=== PATIENT | female | born 1985 | race Caucasian/White ===

== ENCOUNTER 2016-12-05 06:38 | Emergency (ER) | payer OTHER ==
[~2016-12-05] VITALS: Ht 154.9 cm; Wt 57.0 kg
[~2016-12-05 06:38] MED LIST: LEVO-240 PO
[2016-12-05 06:41] VITALS: TEMP 36.9
[2016-12-05] MEDS ORDERED: SODIUM CHLORIDE 0.9% 1000ML 1,000 ML IV STA (06:46)
--- NOTE | 2016-12-05 07:09 | DIAGNOSTIC IMAGING REPORT ---
CHEST ONE VIEW PORTABLE CLINICAL HISTORY: Weakness, palpitations. COMPARISON STUDY: No previous studies for comparison. FINDINGS: The cardiac and mediastinal contours are normal. There is no evidence of focal pulmonary consolidation. There is no evidence of failure. No pleural effusions are visualized.[ IMPRESSION: No active disease in the chest. Electronically signed by: Kendall Sanz M.D. 12/05/2016 7:08 AM Dictated Date/Time: 12/05/2016 7:07 AM
[2016-12-05 07:23] VITALS: Ht 154.9 cm; Wt 57.0 kg
[2016-12-05 07:25] VITALS: O2SAT 100
[2016-12-05 07:26] LABS: BASO % 0.7 %; BASO ABS # 0.04 K/uL (0-0.2); COMPLETE YES; EOS % 1.8 %; HEMATOCRIT 41.9 % (37-47); LYMPH % 38.5 %; LYMPH ABS # 2.12 K/uL (1.2-3.4); MEAN CELL VOLUME 87.8 fL (80-100); MEAN CORPUSCULAR HEMOGLOBIN 30.2 pg (25-34); MEAN CORPUSCULAR HGB CONC 34.4 g/dl (32-36); MEAN PLATELET VOLUME 10.1 fL (7.4-10.4); MONO % 5.6 %; NEUT % 53.4 %; PLATELET COUNT 267 K/uL (130-400); RED BLOOD COUNT 4.77 M/uL (4.2-5.4)
[2016-12-05 07:40] LABS: PROTHROMBIN TIME (PATIENT) 10.7 SECONDS (9.0-12.0)
[2016-12-05] MEDS ORDERED: PRENTAB65 PO (07:41)
[2016-12-05] MEDS ORDERED: LEVO25TA PO (07:41)
[2016-12-05 07:49] LABS: ALT/SGPT 16 U/L (12-78); BLOOD UREA NITROGEN 15 mg/dl (7-18); BUN/CREATININE RATIO 13.6 (10-20); CARBON DIOXIDE 26 mmol/L (21-32); CHLORIDE 106 mmol/L (98-107); GLUCOSE 97 mg/dl (70-99); POTASSIUM 3.5 mmol/L (3.5-5.1); SODIUM 141 mmol/L (136-145)
[2016-12-05 07:58] LABS: ALKALINE PHOSPHATASE 50 U/L (45-117); AST/SGOT 18 U/L (15-37); CKMB/CK RATIO 0.2 (0-3.0)
[2016-12-05 08:56] LABS: URINE APPEARANCE CLEAR (CLEAR); URINE BILIRUBIN NEG (NEG); URINE COLOR YELLOW; URINE NITRITE NEG (NEG); URINE PH 5.5 (4.5-7.5); URINE SPECIFIC GRAVITY 1.007 (1.000-1.030); UROBILINOGEN NEG (NEG)
[2016-12-05 09:02] LABS: MANUAL MICROSCOPIC REQUIRED? NO; REVIEW REQ? NO
[2016-12-05] MEDS ORDERED: POTASSIUM CHLORIDE 10 MEQ TABCR PO STA (09:38)
--- NOTE | 2016-12-05 12:00 | ECHOCARDIOGRAM REPORT ---
*NOTICE TO RECEIVING LIBERTARIAN AGENCY This information is strictly Confidential and protected under [place] law. [place] law prohibits you from making any further disclosure of this information unless further disclosure is expressly permitted by the written consent of the person to whom it pertains or is authorized by law. A general authorization for the release of medical or other information is not sufficient for this purpose. Hospital accepts no responsibility if the information is made available to any other person, INCLUDING THE PATIENT. Interpretation Summary * Name: J LUIS COOPER Study Date: 12/05/2016 10:06 AM BP: 139/90 mmHg * Patient Location: [facility] HR: 107 * : 1985 (M/d/yyyy) Gender: Female Height: 61 in * Age: 31 yrs Ethnicity: CA Weight: 125 lb * Ordering Physician: Tung Travis * Referring Physician: Self, Referred * Performed By: Mariluz Martinez RCS * * Reason For Study: PALPITATIONS * BSA: 1.5 m2 * The study was technically adequate. * -- Conclusions -- * Sinus tachycardia was noted during the echocardiogram examination. * There is normal left ventricular wall thickness. * The left ventricular wall motion is normal. * No regional wall motion abnormalities noted. * Left ventricular systolic function is normal. * The LV Ejection Fraction = 65-70%. * The right ventricle is normal size. * The right ventricle is hyperdynamic. * There is no significant valvular heart disease. * There is no pericardial effusion. Procedure Details * A complete two-dimensional transthoracic echocardiogram was performed (2D, M-mode, Doppler and color flow Doppler). Left Ventricle * The left ventricle is normal in size. * There is normal left ventricular wall thickness. * Left ventricular systolic function is normal. * Ejection Fraction = 65-70%. * The left ventricular wall motion is normal. * No regional wall motion abnormalities noted. Right Ventricle * The right ventricle is normal size. * The right ventricle is hyperdynamic. Atria * The left atrial size is normal. * Right atrial size is normal. * There is no evidence of atrial septal defect, but resolution does not allow assessment for a patent foramen ovale. Mitral Valve * The mitral valve is normal. * There is no mitral valve stenosis. * Significant mitral regurgitation is absent. Tricuspid Valve * The tricuspid valve is normal. * There is no tricuspid stenosis. * Significant tricuspid regurgitation is absent. Aortic Valve * The aortic valve is trileaflet. * Aortic stenosis is absent. * There is no significant aortic regurgitation. Pulmonic Valve * The pulmonary valve is not well seen, but the Doppler examination is normal without significant regurgitation or stenosis. Great Vessels * The aortic root and proximal ascending aorta are normal sized. Pericardium/Pleural * There is no pericardial effusion. Great Vessels * Normal inferior vena cava diameter and respiratory variation suggests normal central venous pressure. * Normal inferior vena cava size and collapsability with sniff indicates a normal right atrial pressure of 3 mmHg Left Ventricular Diastolic Function * The LV diastolic function is normal. MMode 2D Measurements and Calculations IVSd 1.0 cm IVSs 1.3 cm LVIDd 4.5 cm LVIDs 2.9 cm LVPWd 0.86 cm LVPWs 1.4 cm IVS/LVPW 1.2 FS 34.9 % EDV(Teich) 92.5 ml ESV(Teich) 33.1 ml EF(Teich) 64.2 % EDV(cubed) 91.2 ml ESV(cubed) 25.2 ml EF(cubed) 72.4 % % IVS thick 25.3 % % LVPW thick 60.5 % LV mass(C)d 143.3 grams LV mass(C)dI 92.6 grams/m\S\2 LV mass(C)s 127.4 grams LV mass(C)sI 82.3 grams/m\S\2 SV(Teich) 59.4 ml SI(Teich) 38.4 ml/m\S\2 SV(cubed) 66.0 ml SI(cubed) 42.7 ml/m\S\2 Ao root diam 3.3 cm Ao root area 8.6 cm\S\2 ACS 1.8 cm LA dimension 2.7 cm LA/Ao 0.82 LVOT diam 1.9 cm LVOT area 2.7 cm\S\2 LVAd ap4 27.1 cm\S\2 LVLd ap4 7.2 cm EDV(MOD-sp4) 84.3 ml EDV(sp4-el) 86.5 ml LVAs ap4 17.2 cm\S\2 LVLs ap4 6.0 cm ESV(MOD-sp4) 40.2 ml ESV(sp4-el) 41.7 ml EF(MOD-sp4) 52.2 % EF(sp4-el) 51.8 % LVAd ap2 28.4 cm\S\2 LVLd ap2 7.5 cm EDV(MOD-sp2) 86.9 ml EDV(sp2-el) 91.8 ml LVAs ap2 19.9 cm\S\2 LVLs ap2 6.7 cm ESV(MOD-sp2) 48.2 ml ESV(sp2-el) 50.2 ml EF(MOD-sp2) 44.6 % EF(sp2-el) 45.3 % LVLd %diff 3.8 % EDV(MOD-bp) 88.6 ml LVLs %diff 10.4 % ESV(MOD-bp) 46.5 ml EF(MOD-bp) 47.5 % SV(MOD-sp4) 44.0 ml SI(MOD-sp4) 28.5 ml/m\S\2 SV(MOD-sp2) 38.7 ml SI(MOD-sp2) 25.0 ml/m\S\2 SV(MOD-bp) 42.1 ml SI(MOD-bp) 27.2 ml/m\S\2 SV(sp4-el) 44.8 ml SI(sp4-el) 29.0 ml/m\S\2 SV(sp2-el) 41.6 ml SI(sp2-el) 26.9 ml/m\S\2 Doppler Measurements and Calculations MV E max melissa 76.6 cm/sec MV A max melissa 82.5 cm/sec MV E/A 0.93 MV P1/2t max melissa 118.9 cm/sec MV P1/2t 48.4 msec MVA(P1/2t) 4.5 cm\S\2 MV dec slope 719.1 cm/sec\S\2 MV dec time 0.13 sec Ao V2 max 151.8 cm/sec Ao max PG 9.2 mmHg Ao max PG (full) 5.0 mmHg JAMESON(V,A) 1.8 cm\S\2 JAMESON(V,D) 1.8 cm\S\2 LV V1 max PG 4.2 mmHg LV V1 max 102.5 cm/sec PA V2 max 117.7 cm/sec PA max PG 5.5 mmHg
[2016-12-05] MEDS ORDERED: ATEN-173 PO (15:25)
[2016-12-05 15:28] VITALS: BP 129/55
--- NOTE | 2016-12-05 15:33 | Discharge Instructions ---
Discharge Instructions Date of Service Dec 05, 2016. Admission Reason for Evaluation: Heart Palpitations, chest discomfort. Discharge Discharge Diagnosis / Problem: Increased awareness of heart beat, palpitations , abnormal EKG Discharge Goals Goal(s): Therapeutic intervention Activity Recommendations Activity Limitations: per Instructions/Follow-up section Lifting Limitations: gradually increase as tolerated Exercise/Sports Limitations: gradually increase as tolerated May Resume Sexual Activity: when tolerated Shower/Bathe: no limitations Driving or Machine Use: no limitations You should take another day off of work and can resume normal work duty as tolerated on 12/07/16. Current Hospital Diet Patient's current hospital diet: Discharge Diet Recommended Diet: Regular Diet Procedures Procedures Performed: Resting transthoracic echocardiogram Stress Echocardiogram Pending Studies Studies pending at discharge: no Medical Emergencies . Who to Call and When: Medical Emergencies: If at any time you feel your situation is an emergency, please call 911 immediately. . Non-Emergent Contact Non-Emergency issues call your: Primary Care Provider, [facility] Contact Number: Cardiology [phone] . . "Provider Documentation" section prepared by Tung Travis. VTE Core Measure Inpt VTE Proph given/why not?: Treatment not indicated [place] Drug Monitoring Program Drug Monitoring Findings: No controlled medications administered or prescribed.
[2016-12-05 15:46] VITALS: PULSE 95; O2SAT 97
--- NOTE | 2016-12-05 15:51 | Cardiology Consultation ---
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 Zheng for evaluation of palpitations and abnormal EKG. The patient states that she has been in her normal state of health until approximately 2 months ago when she started noticing intermittent episodes of palpitations as well as occasional chest discomfort and left arm discomfort she noticed that her hair was then as well. She had been seen by her primary care provider at [facility] last week and her thyroid-stimulating hormone was elevated prompting initiation of levothyroxine 25 g by mouth daily which she has taken for the last 3 days. She was also prescribed a vitamin to help with her hair thinning. She is on an oral contraceptive tablet which has not been changed in years. She also wore a 24-hour Holter monitor which she completed earlier this week. The results of the Holter monitor included predominant rhythm of sinus rhythm with no significant ectopy. The average heart rate was 80 bpm. Minimum heart rates 49 bpm. Maximum heart rate is 32 bpm. Patient triggered episodes for complaint of palpitations and chest discomfort correlated normal sinus rhythm. The patient was driving to work today and noticed a sensation of a fast and heavy heartbeat also had associated chest discomfort. 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 Her vital signs his initially assessed at 6:41 AM included heart rate of 137 and telemetry findings consistent with sinus tachycardia. EKG revealed sinus tachycardia at [address]-T wave abnormality in the inferior leads as well as subtle ST depression in the lateral leads suggestive of ischemia. The patient received IV fluids and received a 25 mg dose of atenolol. The repeat EKG performed at 1315 normal sinus rhythm with normalization of the previously noted inferior repolarization abnormalities. Persistent T-wave inversion was noted in lead III which could be a variant of normal. The lateral ST segment depression had normalized. The patient was feeling improved by the time I had seen her in the emergency department. She describes that she exercises on a regular basis 2-3 times per week. She does aerobic exercise with occasional treadmill exercise and also does resistance training. She notes no recent chest related symptoms with her exercise routine. Additional findings in the emergency room including negative urine screen. Negative d-dimer screen. History PAST MEDICAL HISTORY: 1. Recently diagnosed hypothyroidism 2. hair thinning PAST SURGICAL HISTORY: delivery 2012 due to malposition GYNECOLOGICAL HISTORY: She notes 2 past pregnancies. She had one miscarriage, one term delivered by section due to mild position FAMILY HISTORY: Mother is alive age 51 with no history of heart disease. Father is also alive in his 50s no history of heart disease SOCIAL HISTORY: Patient is a nonsmoker. 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 A total of 10 systems reviewed and were otherwise negative. Allergies Coded Allergies: Tioconazole (Verified Allergy, Mild, SWELLING, 12/05/16) Uncoded Allergies: YEAST INFECTION MED (Allergy, Mild, 04/20/07) Medications Reported Home Medications Medications Dose Route/Sig Max Daily Dose Days Date Category Tenormin (Atenolol) 25 Mg Tab 25 Mg PO DAILY 30 12/05/16 Rx ( Multivit-Min W/Fe-Fa) 1 Tab Tab 1 Tab PO DAILY 90 12/05/16 Reported Synthroid (Levothyroxine Sodium) 25 Mcg Tab 25 Mcg PO DAILY 12/05/16 Reported Enpresse-28 (Levonorgestrel-Eth Estradiol () 1 Tab Tab 1 Tab PO DAILY 06/03/14 Reported Physical Exam Vital Signs (Last 8hrs): Last 8 Hrs Date Time Temp Pulse Resp B/P Pulse Ox O2 Delivery O2 Flow Rate FiO2 12/05/16 15:28 92 16 129/55 97 Room Air 12/05/16 14:10 81 16 129/75 12/05/16 13:01 86 12/05/16 12:44 86 16 135/88 12/05/16 10:54 118 16 131/78 12/05/16 09:45 96 12/05/16 08:10 110 16 139/90 97 Room Air General Appearance: Alert and Oriented x3. NAD. Head: Normocephalic Atraumatic. Eyes: PERRLA, EOMI, conjunctiva and sclera clear Neck: Supple. No carotid bruits noted. No JVD. No HJD. Respiratory: Breath sounds clear to auscultation bilaterally. No w/r/r. Cardiovascular: Reg rate and rhythm. S1 and S2 noted. No murmurs, rubs, gallops. PMI non displace. Abdomen: Normal bowel sounds, soft nontender. no abdominal bruits. Extremities: No edema, no clubbing or cyanosis. distal pulses 2/4 bilaterally. Neuro: No focal deficits. Psychiatric: Normal affect. Data Last Resulted 12/05/16 07:12 Red Blood Count 4.77, Mean Corpuscular Volume 87.8, Mean Corpuscular Hemoglobin 30.2, Mean Corpuscular Hemoglobin Concent 34.4, Mean Platelet Volume 10.1, Neutrophils (%) (Auto) 53.4, Lymphocytes (%) (Auto) 38.5, Monocytes (%) (Auto) 5.6, Eosinophils (%) (Auto) 1.8, Basophils (%) (Auto) 0.7, Neutrophils # (Auto) 2.93, Lymphocytes # (Auto) 2.12, Monocytes # (Auto) 0.31, Eosinophils # (Auto) 0.10, Basophils # (Auto) 0.04 Last Resulted 12/05/16 07:12 Past 24 Hours Test 12/05/16 07:12 12/05/16 09:45 Range/Units Creatine Kinase MB 0.7 0.5-3.6 ng/ml Creatine Kinase MB Ratio 0.2 0-3.0 Prothromb Time International Ratio 1.0 0.9-1.1 Prothrombin Time 10.7 9.0-12.0 SECONDS Total Creatine Kinase 287 H 26-192 U/L Troponin I < 0.015 < 0.015 0-0.045 ng/ml TSH was elevated at 8.9 a nationally's per liter, T3-T4 were normal. Imaging: Chest x-ray within normal limits EKG: as per [facility] Telemetry reviewed: SR and sinus tachycardia Resting transthoracic echocardiogram revealed normal resting LV systolic function with ejection fraction of 65% and no significant valvular heart disease. No pericardial effusion Exercise stress echocardiogram performed today and reviewed independently by the undersigned, exercise personally supervised by the undersigned physician: Patient exercised to an above average workload into stage IV of standard Miguel protocol. No symptoms suggestive of angina were induced. The resting left ventricular wall motion was normal with normal echocardiographic response to exercise. Mild equivocal EKG changes were noted, but in light of lack of chest discomfort and normal echocardiographic response likely represent false positive EKG. Assessment & Plan Impression: 31-year-old female 1. Palpitations, perhaps related to sinus tachycardia increased cardiac awareness 2. No structural heart disease by resting transthoracic echocardiogram 3. Normal echocardiographic response to exercise 4. Abnormal EKG: Abnormal repolarization noted in the inferior and lateral leads the setting of sinus tachycardia on presentation, and similar changes were noted with exercise in the absence of any cardiac symptoms. 5. Hypothyroidism Discussion/recommendations: The patient has no significant risk factors for underlying coronary heart disease. Although coronary vasospasm is a possibility, her symptoms were relieved by the time we did her stress test this afternoon she felt well with exercise achieving an above average workload. Her EKG tracings with tachycardia and exercise were mildly abnormal, but I do not think this is due to underlying cardiac ischemia. Resting echocardiogram was out of the possibility of underlying cardiomyopathy or hypertrophic cardio myopathy. The present time, I recommend she continues her dose of Synthroid and that she starts low-dose atenolol 25 mg by mouth daily for symptomatically. Outpatient follow-up will be scheduled with me within 2-4 weeks. A prescription for atenolol 25 mg by mouth daily was called into her pharmacy, [facility]. She may return to work on 12/07/16 she feels well. If her palpitations persist, future considerations include backing off on her levothyroxine dose to 12.5 mcg daily and close follow up of her thyroid indices. She has follow-up with her primary care provider with plans to recheck her TSH in 6 weeks. Case is discussed with Dr. Zheng by phone.
--- NOTE | 2016-12-05 16:03 | EMERGENCY ROOM VISIT NOTE ---
History Report prepared by Meagan: Kathryn Martinez Under the Supervision of: Dr. Robinson Ricardo M.D. First contact with patient: 06:46 Chief Complaint: PALPITATIONS Stated Complaint: HEART PALPS History of Present Illness The patient is a 31 year old female who presents to the Emergency Room with complaints of intermittent palpitations that began two months ago. The patient states that she was driving to work today when she suddenly noticed a jolt of chest pain. She states that she noticed palpitations, and her heart rate increase. The patient states that she became foggy. She states that over the last two days she has intermittently felt short of breath. The patient states that over the past week she has intermittently experienced abdominal pain. She states that she has been noticing left arm numbness. The patient states that she saw her PCP on Friday and mentioned that her hair has been thinning and that she has been experiencing palpitations. She states that she has had abnormal thyroid function tests. The patient states that she was placed on Synthroid. She notes a family history of hypertension. Pt denies LOC, headache , fevers, chills, diaphoresis, visual changes, neck pain, tearing pain radiating to the back, personal history or family history of aneurysm or pulmonary embolism, leg swelling, coagulation abnormalities, prolonged travel, recent surgery or immobilization, nausea, vomiting, melena, hematochezia, urinary symptoms, weakness, lymphadenopathy, rash, or other complaints. Source of History: patient Onset: two months ago Position: other (global) Quality: other (palpitations) Timing: intermittent Associated Symptoms: + SOB, + abdominal pain, + chest pain, + numbness ( left arm) Note: Associated Symptoms: foggy, heart rate increase. Review of Systems See HPI for pertinent positives and negatives. A total of ten systems were reviewed and were otherwise negative. Past Medical & Surgical Medical Problems: (1) Migraine Unspecified W/O Intract Mgrn W/O Status Migrainosus Surgical Problems: (1) History of delivery (2) History of tympanostomy Family History Cancer Diabetes mellitus Hypertension Kidney disease Kidney stones Seizures Social History Smoking Status: Never Smoker Alcohol Use: none Marital Status: Housing Status: lives with family Occupation Status: employed Current/Historical Medications Scheduled Atenolol (Tenormin), 25 MG PO DAILY Levonorgestrel-Eth Estradiol ( (Enpresse-28), 1 TAB PO DAILY Levothyroxine Sodium (Synthroid), 25 MCG PO DAILY Multivit-Min W/Fe-Fa (), 1 TAB PO DAILY Allergies Coded Allergies: Tioconazole (Verified Allergy, Mild, SWELLING, 12/05/16) Uncoded Allergies: YEAST INFECTION MED (Allergy, Mild, 04/20/07) Physical Exam Vital Signs Date Time Temp Pulse Resp B/P Pulse Ox O2 Delivery O2 Flow Rate FiO2 12/05/16 15:46 95 16 97 12/05/16 15:28 92 16 129/55 97 Room Air 12/05/16 14:10 81 16 129/75 12/05/16 13:01 86 12/05/16 12:44 86 16 135/88 12/05/16 10:54 118 16 131/78 12/05/16 09:45 96 12/05/16 08:10 110 16 139/90 97 Room Air 12/05/16 07:25 100 Room Air 12/05/16 07:25 100 Room Air 12/05/16 06:56 111 12/05/16 06:41 36.9 137 20 142/82 100 Room Air Physical Exam GENERAL: Awake, alert, well-appearing, in no distress HENT: Normocephalic, atraumatic. Oropharynx unremarkable. EYES: Normal conjunctiva. Sclera non-icteric. NECK: Supple. No nuchal rigidity. FROM. No JVD. RESPIRATORY: Clear to auscultation. CARDIAC: Mildly tachycardic rate, normal rhythm. Extremities warm and well perfused. Pulses equal. ABDOMEN: Soft, non-distended. No tenderness to palpation. No rebound or guarding. No masses. RECTAL: Deferred. MUSCULOSKELETAL: Chest examination reveals no tenderness. The back is symmetrical on inspection without obvious abnormality. There is no CVA tenderness to palpation. No joint edema. LOWER EXTREMITIES: Calves are equal size bilaterally and non-tender. No edema. No discoloration. NEURO: Normal sensorium. No sensory or motor deficits noted. SKIN: No rash or jaundice noted. Medical Decision & Procedures ER Provider Diagnostic Interpretation: X-ray: Per my interpretation, radiologist review. CHEST ONE VIEW PORTABLE CLINICAL HISTORY: Weakness, palpitations. COMPARISON STUDY: No previous studies for comparison. FINDINGS: The cardiac and mediastinal contours are normal. There is no evidence of focal pulmonary consolidation. There is no evidence of failure. No pleural effusions are visualized.[ IMPRESSION: No active disease in the chest. Electronically signed by: Kendall Sanz M.D. 12/05/2016 7:08 AM Dictated Date/Time: 12/05/2016 7:07 AM The status of this report is Signed. Draft = Not yet reviewed or approved by Radiologist. Signed = Reviewed and approved by Radiologist. Laboratory Results 12/05/16 07:12 Red Blood Count 4.77, Mean Corpuscular Volume 87.8, Mean Corpuscular Hemoglobin 30.2, Mean Corpuscular Hemoglobin Concent 34.4, Mean Platelet Volume 10.1, Neutrophils (%) (Auto) 53.4, Lymphocytes (%) (Auto) 38.5, Monocytes (%) (Auto) 5.6, Eosinophils (%) (Auto) 1.8, Basophils (%) (Auto) 0.7, Neutrophils # (Auto) 2.93, Lymphocytes # (Auto) 2.12, Monocytes # (Auto) 0.31, Eosinophils # (Auto) 0.10, Basophils # (Auto) 0.04 12/05/16 07:12 Test 12/05/16 07:12 12/05/16 07:15 12/05/16 08:20 12/05/16 09:45 White Blood Count 5.50 K/uL (4.8-10.8) Red Blood Count 4.77 M/uL (4.2-5.4) Hemoglobin 14.4 g/dL (12.0-16.0) Hematocrit 41.9 % (37-47) Mean Corpuscular Volume 87.8 fL (80-100) Mean Corpuscular Hemoglobin 30.2 pg (25-34) Mean Corpuscular Hemoglobin Concent 34.4 g/dl (32-36) Platelet Count 267 K/uL (130-400) Mean Platelet Volume 10.1 fL (7.4-10.4) Neutrophils (%) (Auto) 53.4 % Lymphocytes (%) (Auto) 38.5 % Monocytes (%) (Auto) 5.6 % Eosinophils (%) (Auto) 1.8 % Basophils (%) (Auto) 0.7 % Neutrophils # (Auto) 2.93 K/uL (1.4-6.5) Lymphocytes # (Auto) 2.12 K/uL (1.2-3.4) Monocytes # (Auto) 0.31 K/uL (0.11-0.59) Eosinophils # (Auto) 0.10 K/uL (0-0.5) Basophils # (Auto) 0.04 K/uL (0-0.2) RDW Standard Deviation 40.4 fL (36.4-46.3) RDW Coefficient of Variation 12.5 % (11.5-14.5) Immature Granulocyte % (Auto) 0.0 % Immature Granulocyte # (Auto) 0.00 K/uL (0.00-0.02) Prothrombin Time 10.7 SECONDS (9.0-12.0) Prothromb Time International Ratio 1.0 (0.9-1.1) Activated Partial Thromboplast Time 26.0 SECONDS (21.0-31.0) Partial Thromboplastin Ratio 1.0 Anion Gap 9.0 mmol/L (3-11) Est Creatinine Clear Calc Drug Dose 55.4 ml/min Estimated GFR () 76.9 Estimated GFR (Non- 66.4 BUN/Creatinine Ratio 13.6 (10-20) Calcium Level 9.0 mg/dl (8.5-10.1) Magnesium Level 2.0 mg/dl (1.8-2.4) Total Bilirubin 0.4 mg/dl (0.2-1) Direct Bilirubin 0.1 mg/dl (0-0.2) Aspartate Amino Transf (AST/SGOT) 18 U/L (15-37) Alanine Aminotransferase (ALT/SGPT) 16 U/L (12-78) Alkaline Phosphatase 50 U/L (45-117) Total Creatine Kinase 287 U/L (26-192) Creatine Kinase MB 0.7 ng/ml (0.5-3.6) Creatine Kinase MB Ratio 0.2 (0-3.0) Total Protein 7.5 gm/dl (6.4-8.2) Albumin 3.8 gm/dl (3.4-5.0) Thyroid Stimulating Hormone (TSH) 8.930 uIu/ml (0.300-4.500) Free Thyroxine 1.02 ng/dl (0.80-1.60) Free Triiodothyronine 3.33 pg/ml (2.30-4.20) Bedside D-Dimer 233 ng/mlFEU (0-450) Urine Color YELLOW Urine Appearance CLEAR (CLEAR) Urine pH 5.5 (4.5-7.5) Urine Specific [place] 1.007 (1.000-1.030) Urine Protein NEG (NEG) Urine Glucose (UA) NEG (NEG) Urine Ketones NEG (NEG) Urine Occult Blood NEG (NEG) Urine Nitrite NEG (NEG) Urine Bilirubin NEG (NEG) Urine Urobilinogen NEG (NEG) Urine Leukocyte Esterase NEG (NEG) Urine Test NEG (NEG) Troponin I < 0.015 ng/ml (0-0.045) Laboratory results reviewed by me Medications Administered Medications (Trade) Dose Ordered Sig/Brittany Route Start Time Stop Time Status Last Admin Dose Admin Sodium Chloride (Nss 1000ml) 1,000 ml @ 125 mls/hr Q8H STAT IV 12/05/16 06:46 12/05/16 14:45 DC 12/05/16 07:01 125 MLS/HR Potassium Chloride (Klor-Con M10) 20 meq NOW STAT PO 12/05/16 09:38 12/05/16 10:07 DC 12/05/16 10:51 20 MEQ Atenolol (Tenormin Tab) 50 mg STK-MED ONCE .ROUTE 12/05/16 10:18 12/05/16 10:19 DC 12/05/16 10:50 25 MG ECG Indication: palpitations Rate (beats per minute): 114 Rhythm: sinus tachycardia Findings: T-wave inversion (Inferior), no ectopy, other (normal intervals) ED Course 0646: Ordered Sodium Chloride 1000 ml @ 125 mls/hr IV. 0652: The patient was evaluated in room A3. A complete history and physical exam was performed. 0934: I discussed the patients case with Dr. Travis, Cardiology. He asked that the troponin is repeated, he would like the patient to have a dose of atenolol and also have an echocardiogram. 0935: I reevaluated the patient and she is doing well. I updated her on the plan. 0938: Ordered Potassium Chloride 20 meq PO. 1018: Ordered Atenolol 50 mg .route. 1345: I rediscussed the patient's case with Dr. Travis, Cardiology . He states that the patient had a normal echocardiogram and is going to stress the patient. 1356: I reevaluated the patient and she is doing well. 1438: I went to reevaluate the patient and she is currently being stressed. 1545: Discussing his with Dr. Travis. Patient passed her stress test very well. He feels that this is related to a sinus tachycardia and cardiac awareness. He prescribed atenolol. Medical Decision Triage Nursing notes reviewed. The patient's presentation and history were concerning for palpitations. Etiologies such as ectopy, cardiac dysrhythmia, electrolyte abnormality, thyroid dysfunction, pulmonary embolism, infection, gastrointestinal, as well as others were entertained. The patient presented with feelings of palpitations. She noted bleeding left hand tingling and a few seconds of chest discomfort. The patient has been dealing with thyroid issues recently. On presentation her heart rate was 137. Initial ECG done revealed a sinus tachycardia, albeit slower. The patient had blood work and chest imaging performed. Blood work and imaging were unremarkable. The patient had a negative CBC, chemistry panel, d-dimer, coags, troponin 2, and free thyroid measurements. The patient underwent echo from cardiology standpoint after consultation and this was normal. The patient underwent stress testing. This was negative. He recommended atenolol. She was given atenolol in the emergency department and he did prescribe more. The patient was reassessed and was doing well. She was given a work note and will be followed up in the office. By the evaluation outlined above other emergent etiologies such as those listed in the differential, as well as others, were deemed relatively unlikely. The patient was informed about the findings as listed above. All questions were answered and she was pleased with the treatment. Return instructions were outlined and the patient was discharged in stable condition. The patient was referred to cardiology and her PCP for follow-up for a recheck of the current condition. The chart was completed utilizing [employer] voice recognition software. Grammatical errors, random word insertions, pronoun errors, and incomplete sentences are an occasional consequence of this system due to software limitations, ambient noise, and hardware issues. Any formal questions or concerns about the content, text, or information contained within the body of this dictation should be directly addressed to the physician for clarification. Consults Time Called: [phone] Consulting Physician: Dr. Travis, Cardiology Returned Call: [phone] I discussed the patients case with Dr. Travis, Cardiology. He asked that the troponin is repeated, he would like the patient to have a dose of atenolol and also have an echocardiogram. Impression Primary Impression: Heart palpitations Scribe Attestation The scribe's documentation has been prepared under my direction and personally reviewed by me in its entirety. I confirm that the note above accurately reflects all work, treatment, procedures, and medical decision making performed by me. Departure Information Dispostion Home / Self-Care Prescriptions Atenolol (Tenormin) 25 Mg Tab 25 MG PO DAILY for 30 Days, #30 TAB 5 Refills Prov: Tung Travis,Roberto Carlos.O. 12/05/16 Referrals Ed Martínez M.D.([facility]) (PCP) Patient Instructions My [facility]
--- NOTE | 2016-12-05 16:25 | EXERCISE STRESS ECHO ---
*NOTICE TO RECEIVING DEMOCRAT AGENCY This information is strictly Confidential and protected under [place] law. [place] law prohibits you from making any further disclosure of this information unless further disclosure is expressly permitted by the written consent of the person to whom it pertains or is authorized by law. A general authorization for the release of medical or other information is not sufficient for this purpose. Hospital accepts no responsibility if the information is made available to any other person, INCLUDING THE PATIENT. Interpretation Summary * Name: J LUIS COOPER Study Date: 12/05/2016 02:19 PM BP: 127/84 mmHg * Patient Location: [facility] HR: 86 * : 1985 (M/d/yyyy) Gender: Female Height: 61 in * Age: 31 yrs Ethnicity: [place] Weight: 125 lb * Ordering Physician: Tung Travis * Referring Physician: Self, Referred * Performed By: Mariluz Martinez RCS * * Reason For Study: PALPITATIONS / ABN EKG * BSA: 1.5 m2 * The study was technically adequate. * -- Conclusions -- * STRESS STUDY: * Normal exercise stress echocardiogram. * Presenting symptoms of chest discomfort and palpitations were not reprodeuced having achieved target heart rate and an above average peak workload. * No echocardiographic evidence of myocardial ischemia having achieved heart rate adequate for diagnostic purposes. * The heart rate and blood pressure responses to exercise were appropriate. * Equivocal stress EKG changes were noted as described below. * No arrhythmias were observed. * This result of this stress test represents a low probability of underlying ischemic heart disease. Procedure Details * ECHOEX, CPT #00572 Left Ventricle * The left ventricle is normal in size. There is normal left ventricular wall thickness. The restng LV Ejection Fraction = 65-70%. * Resting wall motion: Normal. Stress wall motion: Appropriate increase in Left ventricular systolic function and decrease in cavity size. No stress induced segmental wall motion abnormalities. Stress Parameters * The baseline EKG reveals sinus rhythm at [address] segments are normal at rest. * Equivocal 1 mm horizontal and slightly down sloping ST depression was noted in the inferior and lateral leads at peak stress that resolved early in the post exercise recovery interval. * The stress portion of this study was personally supervised by the undersigned interpreting physician. * Rest heart rate was '86' BPM. * Rest blood pressure was '127/84' * Maximum heart rate achieved was 160 bpm. * Maximum heart rate was 85 % of maximum age-predicted heart rate. * Maximum blood pressure was '159/76' * Total exercise time was '10:37' * Maximum exercise MET level achieved was '12.50' METS * Maximum treadmill speed was '4.10' miles per hour. * Maximum treadmill elevation was '16.00'% grade.
[2017-04-26] MEDS ORDERED: BCPILLS PO (13:20)
[2017-04-26] MEDS ORDERED: SUMA50TA15 PO (13:20)
== END 2016-12-05 15:48 | disposition home or self-care (01) ==
LOC: C.EDB 06:40 → C.EDA 15:48
DX: R00.2 Palpitations (principal); E03.9 Hypothyroidism, unspecified

== ENCOUNTER 2016-12-31 12:41 | Emergency (ER) | payer OTHER ==
[~2016-12-31 12:41] MED LIST changes: +ATEN-173 PO; +LEVO25TA PO; +PRENTAB65 PO
[2016-12-31 12:43] VITALS: TEMP 36.8
[2016-12-31] MEDS ORDERED: ATEN-173 PO (13:20)
[2016-12-31 13:27] VITALS: O2SAT 99
[2016-12-31 13:32] LABS: BASO % 1.1 %; BASO ABS # 0.07 K/uL (0-0.2); COMPLETE YES; EOS % 0.7 %; HEMATOCRIT 46.1 % (37-47); LYMPH % 36.6 %; LYMPH ABS # 2.23 K/uL (1.2-3.4); MEAN CELL VOLUME 87.6 fL (80-100); MEAN CORPUSCULAR HEMOGLOBIN 29.7 pg (25-34); MEAN CORPUSCULAR HGB CONC 33.8 g/dl (32-36); MEAN PLATELET VOLUME 9.8 fL (7.4-10.4); MONO % 4.9 %; NEUT % 56.7 %; PLATELET COUNT 306 K/uL (130-400); RED BLOOD COUNT 5.26 M/uL (4.2-5.4); WHITE BLOOD COUNT 6.09 K/uL (4.8-10.8)
[2016-12-31 13:40] LABS: PROTHROMBIN TIME (PATIENT) 10.6 SECONDS (9.0-12.0)
[2016-12-31 13:48] LABS: BLOOD UREA NITROGEN 8 mg/dl (7-18); BUN/CREATININE RATIO 7.7 (10-20); CALCIUM 9.3 mg/dl (8.5-10.1); CARBON DIOXIDE 27 mmol/L (21-32); CHLORIDE 108 mmol/L (98-107); GLUCOSE 136 mg/dl (70-99); MAGNESIUM 2.4 mg/dl (1.8-2.4); SODIUM 142 mmol/L (136-145)
--- NOTE | 2016-12-31 14:54 | DIAGNOSTIC IMAGING REPORT ---
CHEST 2 VIEWS ROUTINE CLINICAL HISTORY: Palpitations. Atypical chest pain. COMPARISON STUDY: 12/05/2016 FINDINGS: The cardiac and mediastinal contours are normal. There is no evidence of focal pulmonary consolidation. There is no evidence of failure. No pleural effusions are visualized.[ IMPRESSION: No active disease in the chest. Electronically signed by: Kendall Sanz M.D. 12/31/2016 2:52 PM Dictated Date/Time: 12/31/2016 2:52 PM
[2016-12-31 15:32] VITALS: BP 117/70; PULSE 92; O2SAT 98
[2016-12-31 15:52] LABS: LYME DISEASE AB IGG NEG (NEG); LYME DISEASE AB IGM NEG (NEG)
--- NOTE | 2016-12-31 16:23 | EMERGENCY ROOM VISIT NOTE ---
History Report prepared by Meagan: Lawrence Mccarthy Under the Supervision of: Dr. Ramirez Guillen M.D. First contact with patient: 12:52 Chief Complaint: CHEST PAIN Stated Complaint: CHEST PAIN, HEART FEELS LIKE FLUTTERING History of Present Illness The patient is a 31 year old female who presents to the Emergency Room with complaints of episodes of worsening chest pain that started a week ago. The patient has had chest discomfort for a while, and had a stress test on December 05. The patient notes that 2 or 3 months, she started having heart palpitations and her hair started to thin, so she went to see her primary care doctor's office, and had lab work done. Her thyroid was checked, which came back low, so she was put on 25 mcg Levothyroxine. The patient, around a month ago, started getting short of breath, and her heart started racing more. At that time, the patient had the abnormal EKG as well as abnormal labs. Her CK was elevated but her troponin was okay. The patient was put on Atenolol by Dr. Travis of cardiology, and told the patient that she had "cardiac awareness". A week later, she was followed up by her primary care doctor, who thought that all the patient's problems were anxiety related. She was prescribed Zoloft, and was told to stop taking Atenolol, but she did not feel she was stressed or anxious, so she decided to not take the Zoloft. Last week, the patient says that her palpitations have worsened and she started getting episodes of chest pain that she describes as sharp. The patient says that she has episodes around 3 times per day that are mostly very brief, but occasionally last up to a half hour. She says that the pain is not changed by exertion, but her chest pain is worsened when bending over. She states she exercises at the gym and lifts weights and does not have chest pain then. She called Dr. Travis's office yesterday to see if she could be seen, but the patient was told that her pain was not cardiac related, and she was told to increase her Atenolol to twice per day. The increase in dosage has not helped her so far. Today, she notes that she had palpitations and pain at the same time. She called her primary care physician's office, who told the patient to be seen by cardiology. In addition to the worsening chest pain, she also notes feeling hot intermittently. Her heart has also been fluttering. She had a bit of diarrhea yesterday, and had a migraine last night with nausea. She has a history of migraines, however. The patient denies any current shortness of breath, fevers, cold symptoms, abdominal pain, or leg swelling. She has not been on any recent long trips. Her grandfather of heart disease at the age of 70, but she has no heart history in her immediate family. She is a non-smoker. Her last menstrual period was light compared to normal, and ended last week. The patient is on control. Source of History: patient Onset: A week ago Position: chest (pain) Symptom Intensity: can last up to 30 minutes Quality: sharp Timing: worsening, other (episodes) Modifying Factors (Worsening): other (bending downward) Associated Symptoms: No SOB, No abdominal pain, No fevers Note: Associated symptoms: Worsening heart palpitations. Feeling hot intermittently. Denies stress/anxiety, recent cold symptoms, leg swelling. The patient notes that she had a bit of diarrhea yesterday as well as a migraine with nausea. Review of Systems See HPI for pertinent positives & negatives. A total of 10 systems reviewed and were otherwise negative. Past Medical & Surgical Medical Problems: (1) Migraine Unspecified W/O Intract Mgrn W/O Status Migrainosus Surgical Problems: (1) History of delivery (2) History of tympanostomy Family History Cancer Diabetes mellitus Hypertension Kidney disease Kidney stones Seizures Social History Smoking Status: Never Smoker Alcohol Use: none Marital Status: Housing Status: lives with family Occupation Status: employed Current/Historical Medications Scheduled Atenolol (Tenormin), 12.5 MG PO BID Control Pills ( Control Pills), 1 TAB PO DAILY Levothyroxine Sodium (Synthroid), 25 MCG PO DAILY Scheduled PRN Sumatriptan Succinate (Imitrex), 50 MG PO PRN PRN for Migraine Allergies Coded Allergies: Tioconazole (Verified Allergy, Mild, SWELLING, 12/05/16) Uncoded Allergies: YEAST INFECTION MED (Allergy, Mild, 04/20/07) Physical Exam Vital Signs Date Time Temp Pulse Resp B/P Pulse Ox O2 Delivery O2 Flow Rate FiO2 12/31/16 15:32 92 12 117/70 98 Room Air 12/31/16 14:09 79 18 142/72 100 12/31/16 13:27 99 Room Air 12/31/16 13:23 89 12/31/16 12:43 36.8 86 20 138/93 100 Room Air Physical Exam Constitutional: Vital signs reviewed. Eyes: Pupils are equal round reactive to light. Conjunctiva are noninjected. ENT: Pharynx is clear without erythema or exudate. Mucous membranes are moist. Neck supple without meningeal signs. Respiratory: Clear to auscultation bilaterally. Breath sounds are equal bilaterally. Cardiovascular: Regular rate and rhythm. No rubs or gallops. GI: Soft, nondistended and nontender. Bowel sounds are present. Musculoskeletal: No peripheral edema. No lower extremity tenderness. Tender along left sternal border with reproduction of pain when she bends forward. Integumentary: No cyanosis. Neurological: The patient is awake and alert. No focal deficits. Psychiatric: Normal affect. Medical Decision & Procedures ER Provider Diagnostic Interpretation: X-ray results as stated below per interpretation by me and the radiologist[facility] CLINICAL HISTORY: Palpitations. Atypical chest pain. COMPARISON STUDY: 12/05/2016 FINDINGS: The cardiac and mediastinal contours are normal. There is no evidence of focal pulmonary consolidation. There is no evidence of failure. No pleural effusions are visualized.[ IMPRESSION: No active disease in the chest. Electronically signed by: Kendall Sanz M.D. 12/31/2016 2:52 PM Dictated Date/Time: 12/31/2016 2:52 PM Laboratory Results 12/31/16 13:20 Red Blood Count 5.26, Mean Corpuscular Volume 87.6, Mean Corpuscular Hemoglobin 29.7, Mean Corpuscular Hemoglobin Concent 33.8, Mean Platelet Volume 9.8, Neutrophils (%) (Auto) 56.7, Lymphocytes (%) (Auto) 36.6, Monocytes (%) (Auto) 4.9, Eosinophils (%) (Auto) 0.7, Basophils (%) (Auto) 1.1, Neutrophils # (Auto) 3.45, Lymphocytes # (Auto) 2.23, Monocytes # (Auto) 0.30, Eosinophils # (Auto) 0.04, Basophils # (Auto) 0.07 12/31/16 13:20 Test 12/31/16 13:08 12/31/16 13:20 12/31/16 13:23 Bedside Urine Test NEG (NEG) White Blood Count 6.09 K/uL (4.8-10.8) Red Blood Count 5.26 M/uL (4.2-5.4) Hemoglobin 15.6 g/dL (12.0-16.0) Hematocrit 46.1 % (37-47) Mean Corpuscular Volume 87.6 fL (80-100) Mean Corpuscular Hemoglobin 29.7 pg (25-34) Mean Corpuscular Hemoglobin Concent 33.8 g/dl (32-36) Platelet Count 306 K/uL (130-400) Mean Platelet Volume 9.8 fL (7.4-10.4) Neutrophils (%) (Auto) 56.7 % Lymphocytes (%) (Auto) 36.6 % Monocytes (%) (Auto) 4.9 % Eosinophils (%) (Auto) 0.7 % Basophils (%) (Auto) 1.1 % Neutrophils # (Auto) 3.45 K/uL (1.4-6.5) Lymphocytes # (Auto) 2.23 K/uL (1.2-3.4) Monocytes # (Auto) 0.30 K/uL (0.11-0.59) Eosinophils # (Auto) 0.04 K/uL (0-0.5) Basophils # (Auto) 0.07 K/uL (0-0.2) RDW Standard Deviation 39.3 fL (36.4-46.3) RDW Coefficient of Variation 12.2 % (11.5-14.5) Immature Granulocyte % (Auto) 0.0 % Immature Granulocyte # (Auto) 0.00 K/uL (0.00-0.02) Prothrombin Time 10.6 SECONDS (9.0-12.0) Prothromb Time International Ratio 1.0 (0.9-1.1) Activated Partial Thromboplast Time 25.8 SECONDS (21.0-31.0) Partial Thromboplastin Ratio 1.0 Anion Gap 7.0 mmol/L (3-11) Estimated GFR () 76.9 Estimated GFR (Non- 66.4 BUN/Creatinine Ratio 7.7 (10-20) Calcium Level 9.3 mg/dl (8.5-10.1) Magnesium Level 2.4 mg/dl (1.8-2.4) Thyroid Stimulating Hormone (TSH) 3.440 uIu/ml (0.300-4.500) Free Thyroxine 1.02 ng/dl (0.80-1.60) Lyme Disease IgG Antibody NEG (NEG) Lyme Disease IgM Antibody NEG (NEG) Bedside D-Dimer 190 ng/mlFEU (0-450) Bedside Troponin I 0.000 ng/ml (0-0.045) Laboratory results as reviewed by me. ECG Indication: chest pain Rate (beats per minute): 79 Rhythm: normal sinus Findings: T-wave inversion (lead 3), no acute ischemic change, other (motion artifact) ED Course 1254: The patient was evaluated in room C2B. A complete history and physical exam was performed. 1420: I reevaluated the patient and discussed the test results with her. She mentioned that she has been pretty fatigued recently but denies any headache, fevers, or tick bits. She does note that she has several dogs that get ticks on them often, so we will do a Lyme titer. 1500: I reevaluated the patient and recommended follow up with her sandwich machine operator and primary care physician. I told her that we will call her with the Lyme results. The patient verbally expressed understanding and agreement of the treatment plan. The patient will be discharged. Medical Decision This is a 31-year-old female presents with chest pain and palpitations. Differential diagnosis includes musculoskeletal pain, costochondritis, pleurisy , pneumothorax, pulmonary embolism, metabolic derangement. I did perform a limited focused review of portions of the patient's old chart on the electronic medical record. The patient had a stress echocardiogram on December 05 which was normal. She had no chest discomfort or palpitations during the stress test, but there were equivocal stress EKG changes. Results show low probability of underlying ischemic heart disease. She had equivocal 1 mm horizontal and downsloping ST depression in inferior and lateral leads at peak stress that resolved. I did evaluate the patient as noted above. The patient is presenting with sharp and brief intermittent chest pain. She states it's worse when she bends over which I was able to reproduce here in the emergency department. She also has pain with palpation of the left sternal border suggesting a musculoskeletal cause of her symptoms. She does not have any known cardiac risk factors. She did recently have a stress test and her sandwich machine operator felt that her chest pain and palpitations are not ischemic in nature. She was diagnosed with hypothyroidism and placed on levothyroxine. IV access was established. The patient was placed on a continuous supervising editor trailer. Urine test is negative. I did order and personally review the patient's 12-lead EKG and chest x-ray as described above. Her EKG is unremarkable. Her chest x-ray does not show any pneumothorax. I did order and review the patient's blood work as noted in the electronic medical record. D-dimer and troponin are both negative. TFTs are unremarkable. I did discuss the test results with the patient. I did recommend she follow up with her doctor. She does state that she has been feeling fatigued which may be secondary to the atenolol she is taking but she does state that her thoughts get many ticks and so I did add a Lyme titer which is currently pending. She was discharged in good condition and we will call her should the Lyme test be positive. Test was negative. The charge nurse was asked to inform the patient. Impression Primary Impression: Left sided chest pain Additional Impression: Palpitations Scribe Attestation The scribe's documentation has been prepared under my direct and personally reviewed by me in its entirety. I confirm that the note above accurately reflects all work, treatment, procedures, and medical decision making performed by me. Departure Information Dispostion Home / Self-Care Referrals Ed Martínez M.D.([facility]) (PCP) Forms HOME CARE DOCUMENTATION FORM, IMPORTANT VISIT INFORMATION Patient Instructions ED Chest Pain Atypical Unkn Cause, ED Palpitations, My [facility] Additional Instructions You have been examined and treated today on an emergency basis only. This is not a substitute for, or an effort to provide, complete comprehensive medical care. It is impossible to recognize and treat all injuries or illnesses in a single emergency department visit. It is therefore important that you follow up closely with your physician and sandwich machine operator. Call as soon as possible for an appointment. Return for worsening symptoms or if you develop fever, vomiting, difficulty breathing or any other concerning symptoms. Problem Qualifiers
[2017-04-26] MEDS ORDERED: BCPILLS PO (13:20)
[2017-04-26] MEDS ORDERED: SUMA50TA15 PO (13:20)
== END 2016-12-31 15:39 | disposition home or self-care (01) ==
LOC: C.EDB 12:42 → C.EDC 15:39
DX: R07.89 Other chest pain (principal); R00.2 Palpitations

== ENCOUNTER → 2017-01-13 | Outpatient (CLI) | payer OTHER ==
[~2017-01-13] MED LIST changes: +ATV/1 PO; +BCPILLS PO; +BIOT1TAB2 PO; +CYAN10005 PO; +ESCI10TA17 PO; -LEVO-240 PO; +LORA-741 PO; +METO25TA3 PO; +MULT-506 PO; -PRENTAB65 PO; +SUMA50TA15 PO
== END | disposition home or self-care (01) ==
LOC: C.LAB 06:27
PROVIDERS: ATTEND Physician Assistant
DX: R00.2 Palpitations (principal)

== ENCOUNTER → 2017-01-22 | Outpatient (CLI) | payer OTHER ==
[2017-01-22 16:34] LABS: THYROID STIMULATING HORMONE 1.78 uIu/ml (0.300-4.500)
== END | disposition home or self-care (01) ==
LOC: C.LAB 14:44
PROVIDERS: ATTEND Physician Assistant
DX: E03.9 Hypothyroidism, unspecified (principal); R00.2 Palpitations

== ENCOUNTER 2017-01-31 21:21 | Emergency (ER) | payer OTHER ==
[~2017-01-31] VITALS: Ht 156.2 cm; Wt 55.2 kg
[~2017-01-31 21:21] MED LIST changes: -ATV/1 PO; -BCPILLS PO; -BIOT1TAB2 PO; -CYAN10005 PO; -ESCI10TA17 PO; -LORA-741 PO; -METO25TA3 PO; -MULT-506 PO; -SUMA50TA15 PO
[2017-01-31 21:25] VITALS: TEMP 36.9; Ht 156.2 cm; Wt 55.2 kg
[2017-01-31] MEDS ORDERED: ONDANSETRON INJ 2 MG/ML 2 ML VIAL IV STA (22:02)
[2017-01-31] MEDS ORDERED: MoRPHine SULFATE 2 MG/ML CARP IV STA (22:02)
[2017-01-31] MEDS ORDERED: LORAZEPAM 2 MG/ML 1 ML VIAL IV STA (22:02)
[2017-01-31 23:20] LABS: BASO % 0.4 %; BASO ABS # 0.04 K/uL (0-0.2); COMPLETE YES; EOS % 0.3 %; HEMATOCRIT 39.8 % (37-47); IG% 0.2 %; LYMPH % 23.6 %; LYMPH ABS # 2.15 K/uL (1.2-3.4); MEAN CELL VOLUME 87.3 fL (80-100); MEAN CORPUSCULAR HEMOGLOBIN 30.3 pg (25-34); MEAN CORPUSCULAR HGB CONC 34.7 g/dl (32-36); MEAN PLATELET VOLUME 9.8 fL (7.4-10.4); MONO % 8.2 %; NEUT % 67.3 %; PLATELET COUNT 274 K/uL (130-400); RED BLOOD COUNT 4.56 M/uL (4.2-5.4); WHITE BLOOD COUNT 9.12 K/uL (4.8-10.8)
[2017-01-31 23:38] LABS: ALT/SGPT 18 U/L (12-78); AST/SGOT 7 U/L (15-37); BLOOD UREA NITROGEN 15 mg/dl (7-18); BUN/CREATININE RATIO 16.7 (10-20); CALCIUM 9.1 mg/dl (8.5-10.1); CARBON DIOXIDE 26 mmol/L (21-32); CHLORIDE 110 mmol/L (98-107); GLUCOSE 98 mg/dl (70-99); SODIUM 144 mmol/L (136-145)
[2017-01-31 23:41] LABS: ALKALINE PHOSPHATASE 56 U/L (45-117)
--- NOTE | 2017-02-01 00:06 | EMERGENCY ROOM VISIT NOTE ---
History Report prepared by Sylviaibtamara: Tez Matthew Under the Supervision of: Dr. Jayce Ruvalcaba M.D. First contact with patient: 21:36 Chief Complaint: CHEST PAIN Stated Complaint: CHEST PAIN,POUNDING/FAST HEART,BACK PAIN,HEADACHE, Nursing Triage Summary: Patient states "I was diagnosed with hypothyroidism at the end of November. I was started on medications for it. A few days into the meds, I started having pains in my chest. I have been checked out here multiple times for the chest pains. I have seen two different cardiologists. Everyone tells me it is not my heart but then why do I have this pain? I have a sharp pain in the left side of my chest that goes into the left side of the back of my neck. My left arm feels really weak and heavy. I have floaters in my eyes as well. I have had a migraine every day for the last three days. I have a knot of nausea in the center of my chest. " History of Present Illness The patient is a 31 year old female who presents to the Emergency Room with complaints of constant left sided chest pain beginning shortly prior to arrival. She states that she has had four months of chest pain, but states that her current chest pain feels different. She has followed up with her PCP and cardiology for her chest pain, but the cause has been uncertain. The patient also complains of a headache. She is currently being tested for thyroid problems as an outpatient. She denies nausea, or vomiting. Source of History: patient Onset: Shortly prior to arrival Position: chest (left) Timing: constant Associated Symptoms: + headache, No nausea, No vomiting Review of Systems See HPI for pertinent positives & negatives. A total of 10 systems reviewed and were otherwise negative. Past Medical & Surgical Medical Problems: (1) Migraine Unspecified W/O Intract Mgrn W/O Status Migrainosus Surgical Problems: (1) History of delivery (2) History of tympanostomy Family History Cancer Diabetes mellitus Hypertension Kidney disease Kidney stones Seizures Social History Smoking Status: Never Smoker Alcohol Use: none Marital Status: Housing Status: lives with family Occupation Status: employed Current/Historical Medications Scheduled Atenolol (Tenormin), 12.5 MG PO BID Control Pills ( Control Pills), 1 TAB PO DAILY Levothyroxine Sodium (Synthroid), 50 MCG PO DAILY Scheduled PRN Sumatriptan Succinate (Imitrex), 50 MG PO PRN PRN for Migraine Allergies Coded Allergies: Tioconazole (Verified Allergy, Mild, SWELLING, 01/31/17) Uncoded Allergies: YEAST INFECTION MED (Allergy, Mild, 04/20/07) Physical Exam Vital Signs Date Time Temp Pulse Resp B/P Pulse Ox O2 Delivery O2 Flow Rate FiO2 01/31/17 21:25 100 Room Air 01/31/17 21:25 36.9 103 18 152/88 100 Room Air Physical Exam GENERAL: Patient is a healthy-appearing well-nourished female HEAD: Normocephalic atraumatic EYES: Ocular movements intact pupils equal and react to light OROPHARYNX mucous membranes are moist no exudates present no erythema or edema present NECK: Supple no nuchal rigidity CHEST: Good equal expansion, Pain is reproducible @ sternum and left breast area LUNGS: Clear and equal to auscultation CARDIAC: Normal S1 and S2 ABDOMEN: Soft nontender no guarding BACK: No CVA tenderness EXTREMITIES: No pain upon palpation normal muscle strength in all groups no clubbing cyanosis or edema NEURO: Patient is following commands is answering questions appropriately. Alert and oriented x3 Cranial Nerves 2-12 grossly intact Medical Decision & Procedures Laboratory Results 01/31/17 23:00 Red Blood Count 4.56, Mean Corpuscular Volume 87.3, Mean Corpuscular Hemoglobin 30.3, Mean Corpuscular Hemoglobin Concent 34.7, Mean Platelet Volume 9.8, Neutrophils (%) (Auto) 67.3, Lymphocytes (%) (Auto) 23.6, Monocytes (%) (Auto) 8.2, Eosinophils (%) (Auto) 0.3, Basophils (%) (Auto) 0.4, Neutrophils # (Auto) 6.13, Lymphocytes # (Auto) 2.15, Monocytes # (Auto) 0.75, Eosinophils # (Auto) 0.03, Basophils # (Auto) 0.04 01/31/17 23:00 Test 01/31/17 23:00 01/31/17 23:13 White Blood Count 9.12 K/uL (4.8-10.8) Red Blood Count 4.56 M/uL (4.2-5.4) Hemoglobin 13.8 g/dL (12.0-16.0) Hematocrit 39.8 % (37-47) Mean Corpuscular Volume 87.3 fL (80-100) Mean Corpuscular Hemoglobin 30.3 pg (25-34) Mean Corpuscular Hemoglobin Concent 34.7 g/dl (32-36) Platelet Count 274 K/uL (130-400) Mean Platelet Volume 9.8 fL (7.4-10.4) Neutrophils (%) (Auto) 67.3 % Lymphocytes (%) (Auto) 23.6 % Monocytes (%) (Auto) 8.2 % Eosinophils (%) (Auto) 0.3 % Basophils (%) (Auto) 0.4 % Neutrophils # (Auto) 6.13 K/uL (1.4-6.5) Lymphocytes # (Auto) 2.15 K/uL (1.2-3.4) Monocytes # (Auto) 0.75 K/uL (0.11-0.59) Eosinophils # (Auto) 0.03 K/uL (0-0.5) Basophils # (Auto) 0.04 K/uL (0-0.2) RDW Standard Deviation 39.5 fL (36.4-46.3) RDW Coefficient of Variation 12.3 % (11.5-14.5) Immature Granulocyte % (Auto) 0.2 % Immature Granulocyte # (Auto) 0.02 K/uL (0.00-0.02) Anion Gap 8.0 mmol/L (3-11) Est Creatinine Clear Calc Drug Dose 69.3 ml/min Estimated GFR () 98.1 Estimated GFR (Non- 84.6 BUN/Creatinine Ratio 16.7 (10-20) Calcium Level 9.1 mg/dl (8.5-10.1) Total Bilirubin 0.2 mg/dl (0.2-1) Direct Bilirubin < 0.1 mg/dl (0-0.2) Aspartate Amino Transf (AST/SGOT) 7 U/L (15-37) Alanine Aminotransferase (ALT/SGPT) 18 U/L (12-78) Alkaline Phosphatase 56 U/L (45-117) Total Protein 7.4 gm/dl (6.4-8.2) Albumin 3.7 gm/dl (3.4-5.0) Lipase 142 U/L (73-393) Bedside D-Dimer 410 ng/mlFEU (0-450) Bedside Troponin I 0.000 ng/ml (0-0.045) Medications Administered Medications (Trade) Dose Ordered Sig/Brittany Route Start Time Stop Time Status Last Admin Dose Admin Lorazepam (Ativan Inj) 1 mg NOW STAT IV 01/31/17 22:02 01/31/17 22:07 DC 01/31/17 23:55 1 MG Morphine Sulfate (MoRPHine SULFATE INJ) 2 mg NOW STAT IV 01/31/17 22:02 01/31/17 22:07 DC 01/31/17 23:55 2 MG Ondansetron HCl (Zofran Inj) 4 mg NOW STAT IV 01/31/17 22:02 01/31/17 22:07 DC 01/31/17 23:54 4 MG ED Course 2134: Past medical records reviewed. The patient was evaluated in room C7. A complete history and physical examination was performed. Medical Decision Resident Physician Supervision Note: I interviewed and examined the patient. Discussed with Dr. Reed and agree with findings and plan as documented in the note. Documented By: Jayce Ruvalcaba Pt has follow up on for mammography, suspect some of this chest pain is actually breast related. Impression Primary Impression: Chest wall pain Scribe Attestation The scribe's documentation has been prepared under my direction and personally reviewed by me in its entirety. I confirm that the note above accurately reflects all work, treatment, procedures, and medical decision making performed by me. Departure Information Dispostion Home / Self-Care Referrals Victorino Cason M.D. (PCP) Patient Instructions My [facility]
[2017-02-01 00:07] LABS: PREG INTERNAL NEGATIVE QC NEG CLEAR BACKGROUND; PREG INTERNAL POSITIVE QC POS CONTROL LINE
--- NOTE | 2017-02-01 01:03 | EMERGENCY ROOM VISIT NOTE ---
History First contact with patient: 21:36 Chief Complaint: CHEST PAIN Stated Complaint: CHEST PAIN,POUNDING/FAST HEART,BACK PAIN,HEADACHE, Nursing Triage Summary: Patient states "I was diagnosed with hypothyroidism at the end of November. I was started on medications for it. A few days into the meds, I started having pains in my chest. I have been checked out here multiple times for the chest pains. I have seen two different cardiologists. Everyone tells me it is not my heart but then why do I have this pain? I have a sharp pain in the left side of my chest that goes into the left side of the back of my neck. My left arm feels really weak and heavy. I have floaters in my eyes as well. I have had a migraine every day for the last three days. I have a knot of nausea in the center of my chest. " History of Present Illness The patient is a 31 year old female who presents to the Emergency Room with complaints of chest pain. The pain is sharp, 7/10, over the left side of the chest and radiating to the left axilla was well as scapula. The pain started at 9pm this evening, came on suddenly, and has been consistent since. She did try to take Ibuprofen and Atenolol at home to help with the palpitations that have been coinciding with the pain. The pain is different from the chest pain she has been experiencing from the last few months for which she has been worked up as an outpatient for. She has been followed for palpitations since September that were attributed to her abnormal TSH for which she is currently being treated with Levothyroxine. She has followed with Dr. Travis initially and was started on Atenolol. She recently had a follow up with Dr. Cason for a second opinion and he recommended weaning off of the Atenolol because he believed her condition is not cardiac in nature. She has had multiple EKGs, troponin, and and ECHO stress test that have all been found to be within normal limits. The patient was prescribed Zoloft by her PCP because she believed the symptoms were related to anxiety, but Dr. Travis recommended not using the Zoloft because it would exacerbate her palpitations. She says that she just does not feel right and feels very fatigued all the time, with multiple palpitations daily along with chest pain. She denies any headaches, nausea, vomiting, abdominal pain, shortness of breath, cough, fever, chills, diarrhea, constipation. Review of Systems See HPI for pertinent positives and negatives. A total of ten systems were reviewed and were otherwise negative. Past Medical/Surgical History Medical Problems: (1) Migraine Unspecified W/O Intract Mgrn W/O Status Migrainosus Surgical Problems: (1) History of delivery (2) History of tympanostomy Family History Cancer Diabetes mellitus Hypertension Kidney disease Kidney stones Seizures Social History Smoking Status: Never Smoker Alcohol Use: none Marital Status: Housing Status: lives with family Occupation Status: employed Current/Historical Medications Scheduled Atenolol (Tenormin), 12.5 MG PO BID Control Pills ( Control Pills), 1 TAB PO DAILY Levothyroxine Sodium (Synthroid), 50 MCG PO DAILY Scheduled PRN Sumatriptan Succinate (Imitrex), 50 MG PO PRN PRN for Migraine Allergies Coded Allergies: Tioconazole (Verified Allergy, Mild, SWELLING, 01/31/17) Uncoded Allergies: YEAST INFECTION MED (Allergy, Mild, 04/20/07) Physical Exam Vital Signs Date Time Temp Pulse Resp B/P Pulse Ox O2 Delivery O2 Flow Rate FiO2 01/31/17 23:50 98 13 131/80 100 Room Air 01/31/17 21:25 100 Room Air 01/31/17 21:25 36.9 103 18 152/88 100 Room Air Physical Exam GENERAL: Awake, alert, well-appearing, in mild distress HENT: Normocephalic, atraumatic. Oropharynx unremarkable. EYES: Normal conjunctiva. Sclera non-icteric. NECK: Supple. No nuchal rigidity. RESPIRATORY: Clear to auscultation. CARDIAC: Regular rate, normal rhythm. Extremities warm and well perfused. Pulses equal. ABDOMEN: Soft, non-distended. No tenderness to palpation. No rebound or guarding. No masses. RECTAL: Deferred. MUSCULOSKELETAL: Chest examination reveals point tenderness to palpation over the left side of the chest along the 5th rib. The back is symmetrical on inspection without obvious abnormality. There is no CVA tenderness to palpation. Tenderness over the left scapula where the patient states that the pain is radiating. LOWER EXTREMITIES: Calves are equal size bilaterally and non-tender. No edema. No discoloration. NEURO: Normal sensorium. No sensory or motor deficits noted. SKIN: No rash or jaundice noted. Medical Decision & Procedures Laboratory Results 01/31/17 23:00 Red Blood Count 4.56, Mean Corpuscular Volume 87.3, Mean Corpuscular Hemoglobin 30.3, Mean Corpuscular Hemoglobin Concent 34.7, Mean Platelet Volume 9.8, Neutrophils (%) (Auto) 67.3, Lymphocytes (%) (Auto) 23.6, Monocytes (%) (Auto) 8.2, Eosinophils (%) (Auto) 0.3, Basophils (%) (Auto) 0.4, Neutrophils # (Auto) 6.13, Lymphocytes # (Auto) 2.15, Monocytes # (Auto) 0.75, Eosinophils # (Auto) 0.03, Basophils # (Auto) 0.04 01/31/17 23:00 Test 01/31/17 23:00 01/31/17 23:13 White Blood Count 9.12 K/uL (4.8-10.8) Red Blood Count 4.56 M/uL (4.2-5.4) Hemoglobin 13.8 g/dL (12.0-16.0) Hematocrit 39.8 % (37-47) Mean Corpuscular Volume 87.3 fL (80-100) Mean Corpuscular Hemoglobin 30.3 pg (25-34) Mean Corpuscular Hemoglobin Concent 34.7 g/dl (32-36) Platelet Count 274 K/uL (130-400) Mean Platelet Volume 9.8 fL (7.4-10.4) Neutrophils (%) (Auto) 67.3 % Lymphocytes (%) (Auto) 23.6 % Monocytes (%) (Auto) 8.2 % Eosinophils (%) (Auto) 0.3 % Basophils (%) (Auto) 0.4 % Neutrophils # (Auto) 6.13 K/uL (1.4-6.5) Lymphocytes # (Auto) 2.15 K/uL (1.2-3.4) Monocytes # (Auto) 0.75 K/uL (0.11-0.59) Eosinophils # (Auto) 0.03 K/uL (0-0.5) Basophils # (Auto) 0.04 K/uL (0-0.2) RDW Standard Deviation 39.5 fL (36.4-46.3) RDW Coefficient of Variation 12.3 % (11.5-14.5) Immature Granulocyte % (Auto) 0.2 % Immature Granulocyte # (Auto) 0.02 K/uL (0.00-0.02) Urine Test NEG (NEG) Anion Gap 8.0 mmol/L (3-11) Est Creatinine Clear Calc Drug Dose 69.3 ml/min Estimated GFR () 98.1 Estimated GFR (Non- 84.6 BUN/Creatinine Ratio 16.7 (10-20) Calcium Level 9.1 mg/dl (8.5-10.1) Total Bilirubin 0.2 mg/dl (0.2-1) Direct Bilirubin < 0.1 mg/dl (0-0.2) Aspartate Amino Transf (AST/SGOT) 7 U/L (15-37) Alanine Aminotransferase (ALT/SGPT) 18 U/L (12-78) Alkaline Phosphatase 56 U/L (45-117) Total Protein 7.4 gm/dl (6.4-8.2) Albumin 3.7 gm/dl (3.4-5.0) Lipase 142 U/L (73-393) Thyroid Stimulating Hormone (TSH) 3.300 uIu/ml (0.300-4.500) Thyroxine (T4) 11.6 mcg/dl (4.5-10.9) Bedside D-Dimer 410 ng/mlFEU (0-450) Bedside Troponin I 0.000 ng/ml (0-0.045) Medications Administered Medications (Trade) Dose Ordered Sig/Brittany Route Start Time Stop Time Status Last Admin Dose Admin Lorazepam (Ativan Inj) 1 mg NOW STAT IV 01/31/17 22:02 01/31/17 22:07 DC 01/31/17 23:55 1 MG Morphine Sulfate (MoRPHine SULFATE INJ) 2 mg NOW STAT IV 01/31/17 22:02 01/31/17 22:07 DC 01/31/17 23:55 2 MG Ondansetron HCl (Zofran Inj) 4 mg NOW STAT IV 01/31/17 22:02 01/31/17 22:07 DC 01/31/17 23:54 4 MG Medical Decision Patient is a 31 year old female that presents with a 1 hour history of chest pain - Tests Ordered: CBC, BMP, Lipase, LFTs, Troponin, Urine , D-Dimer - Medications Ordered: Ativan, Morphine, Zofran - Imaging: Chest X-Ray - Lab work and Imaging was all within normal limits - Pain most likely 2/2 MSK origin based on exam and reproducibility Impression Primary Impression: Chest wall pain Departure Information Dispostion Home / Self-Care Condition GOOD Referrals Victorino Cason M.D. (PCP) Patient Instructions [facility]
[2017-02-01 01:30] VITALS: BP 115/74; PULSE 96; O2SAT 100
[2017-02-01] MEDS ORDERED: ATV/1 PO ×2 (01:34→01:35)
--- NOTE | 2017-02-01 08:15 | DIAGNOSTIC IMAGING REPORT ---
TWO VIEW CHEST CLINICAL HISTORY: Atypical chest pain. FINDINGS: PA and lateral chest radiographs are compared to study dated 12/31/2016. The cardiomediastinal silhouette is unremarkable. The lungs and pleural spaces are clear. There is no pneumothorax. The bony thorax appears intact. IMPRESSION: No active disease in the chest. Electronically signed by: Catracho Warren M.D. 02/01/2017 8:13 AM Dictated Date/Time: 02/01/2017 8:13 AM
[2017-04-26] MEDS ORDERED: BCPILLS PO (13:20)
[2017-04-26] MEDS ORDERED: SUMA50TA15 PO (13:20)
== END 2017-02-01 01:30 | disposition home or self-care (01) ==
LOC: C.EDB 21:22 → C.EDC 02-01 01:30
DX: R07.89 Other chest pain (principal); Z80.9 Family history of malignant neoplasm, unspecified; Z83.3 Family history of diabetes mellitus; Z82.49 Family history of ischemic heart disease and other diseases of the circulatory system; Z84.1 Family history of disorders of kidney and ureter; Z82.0 Family history of epilepsy and other diseases of the nervous system; Z79.899 Other long term (current) drug therapy; Z79.3 Long term (current) use of hormonal contraceptives

== ENCOUNTER → 2017-02-06 | Outpatient (CLI) | payer OTHER ==
[~2017-02-06] MED LIST changes: +ATV/1 PO; +BCPILLS PO; +BIOT1TAB2 PO; +CYAN10005 PO; +ESCI10TA17 PO; +LORA-741 PO; +METO25TA3 PO; +MULT-506 PO; +SUMA50TA15 PO
--- NOTE | 2017-02-06 12:54 | MAMMOGRAPHY REPORT ---
UNILATERAL LEFT DIGITAL DIAGNOSTIC MAMMOGRAM TOMOSYNTHESIS WITH CAD AND TARGETED LEFT ULTRASOUND: 02/06 CLINICAL HISTORY: 31-year-old woman with 2 palpable lumps in the upper outer quadrant of the left galileo ast that she noticed a few months ago. They typically fluctuate based on her cycle but this one rece ntly enlarged and never shrunk again. No family history of breast cancer. No skin changes or nipple discharge. Patient has a history of previous fine-needle aspiration based on palpation of a palpabl e mass that was located in the 2:00 left breast, 8 cm from the nipple while the patient was in normal anatomic position. A previous left breast ultrasound performed 06/17/2013 demonstrated a circumscri bed oval parallel mass in the 1:00 axis that measured 2.1 x 2.0 x 0.8 mm. The final pathology diagno sis was that of a lactating adenoma or normal breast tissue. TECHNIQUE: Left breast tomosynthesis in addition to standard 2D mammography was performed. Current st udy was also evaluated with a Computer Aided Detection (CAD) system. COMPARISON: Comparison is made to exam dated: 06/17/2013 ultrasound - [facility]. BREAST COMPOSITION: The tissue of the left breast is heterogeneously dense, which may obscure small masses. FINDINGS: A triangular skin palpable marker overlies the upper outer middle one third of the left br east, denoting the lump pointed out by the patient. There is no obvious mass, focal area of architec tural distortion or suspicious cluster of microcalcifications. Targeted ultrasound was performed in the area of palpable lump pointed out by the patient. The patie nt noted 2 lumps. The first was located in the 1:00 axis, 6 cm from the nipple, and the second was l arger in the 1:00 axis approximately 2-5 cm from the nipple. On palpation there is a discrete soft m obile mass in the 1:00 axis, 6 cm from the nipple in the area of first lumbar pointed out by the contreras ent. In this location, there is an isoechoic circumscribed parallel solid appearing mass that measur es 14.0 x 4.2 x 11.3 mm. When comparing to the prior ultrasound performed on 06/17/2013, the [facility] appears similar but the mass identified at that time was larger based on measurements and visually more plump. The prior measurements were 20.1 x 7.7 x 21.0 mm. This was also the palpab le mass that was previously aspirated and the diagnosis described as either a lactating adenoma or be nign breast tissue. Nevertheless, given the interval decrease in size sonographically this is consid ered benign and currently has benign sonographic features. In the second area of concern in the 1:00 axis approximately 3-5 cm from the nipple, sonographically normal dense glandular tissue is identified without a suspicious solid or cystic mass. IMPRESSION: ACR BI-RADS CATEGORY 2: BENIGN, TARGETED ULTRASOUND ACR BI-RADS CATEGORY 2: BENIGN 1. The palpable lump in the 1:00 left breast, 6 cm from the nipple has decreased in size comparing t o the 2013 ultrasound, confirming benignity. Pathology results from a prior fine-needle aspiration w ere also benign. Recommend continued clinical monitoring. 2. The larger area of palpable concern in the 1:00 axis, 3-5 cm from the nipple has no suspicious ma mmographic or sonographic correlate. This could simply represent dense glandular tissue. Clinical f ollow-up is also recommended. 3. Overall, there is no mammographic or targeted sonographic evidence of malignancy in the left [address]. These results and recommendations were discussed with the patient at the time of the exam. Approximately 10% of breast cancers are not detected with mammography. A negative mammographic report should not delay biopsy if a clinically suggestive mass is present. Lidia Richmond M.D. ay/:02/06/2017 12:15:38 Manager Community Development: Margie BELL(Dov)(M), [facility] letter sent: Normal 1/2 BI-RADS Code: ACR BI-RADS Category 2: Benign Ultrasound BI-RADS: ACR BI-RADS Category 2: Benign
== END | disposition home or self-care (01) ==
LOC: C.MAMM 09:19
PROVIDERS: ATTEND Obstetrics & Gynecology
DX: N63 Unspecified lump in breast (principal)

== ENCOUNTER → 2017-02-07 | Outpatient (CLI) | payer OTHER ==
[2017-02-07 16:07] LABS: CHOLESTEROL/HDL RATIO 3.4
[2017-02-07 17:09] LABS: LYME DISEASE AB IGG NEG (NEG); LYME DISEASE AB IGM NEG (NEG)
== END | disposition home or self-care (01) ==
LOC: C.LAB 14:19
PROVIDERS: ATTEND Physician Assistant
DX: Z00.00 Encounter for general adult medical examination without abnormal findings (principal); Z13.21 Encounter for screening for nutritional disorder; R53.83 Other fatigue; M62.81 Muscle weakness (generalized)

== ENCOUNTER → 2017-02-13 | Outpatient (CLI) | payer OTHER ==
[~2017-02-13] MED LIST changes: -ATV/1 PO; +GADAVIST IV PRN
--- NOTE | 2017-02-13 20:24 | DIAGNOSTIC IMAGING REPORT ---
MRI soft tissue neck SOFT TISSUE NECK COMBO CLINICAL HISTORY: R20.2 Arm paresthesia, [id number] nodule TECHNIQUE: MRI multi axial acquisition COMPARISON STUDY: None FINDINGS: Signal characteristics of the salivary glands are unremarkable. There is no significant cervical adenopathy. The soft tissue neck musculature is symmetric. There is no evidence for abnormal postcontrast enhancement. There is no evidence for mass collection or abscess. IMPRESSION: Normal study Electronically signed by: Jersey Luciano M.D. 02/13/2017 8:23 PM Dictated Date/Time: 02/13/2017 8:21 PM
--- NOTE | 2017-02-13 20:28 | DIAGNOSTIC IMAGING REPORT ---
MRI OF THE BRAIN WITHOUT AND WITH IV CONTRAST CLINICAL HISTORY: R41.82 Altered mental [id number] Floaters in visual [id number] COMPARISON STUDY: No previous studies for comparison. TECHNIQUE: Utilizing a 1.5 Lillie magnet and dedicated coil, multiplanar, multiecho imaging of the brain was performed pre and postcontrast administration. IV administration of 8.5 mL of Gadavist contrast was uneventful. FINDINGS: Diffusion-weighted images are normal. Ventricular system is midline. Sella and parasellar regions are within normal limits. Internal auditory canals are symmetric. Postcontrast images are negative for an enhancing lesion. IMPRESSION: Normal study. Electronically signed by: Jersey Luciano M.D. 02/13/2017 8:26 PM Dictated Date/Time: 02/13/2017 8:26 PM
== END | disposition home or self-care (01) ==
LOC: C.MRI 18:56
PROVIDERS: ATTEND Physician Assistant
DX: R20.2 Paresthesia of skin (principal); H43.399 Other vitreous opacities, unspecified eye; R53.83 Other fatigue; R41.82 Altered mental status, unspecified

== ENCOUNTER → 2017-02-28 | Outpatient (CLI) | payer OTHER ==
[~2017-02-28] MED LIST changes: -GADAVIST IV PRN
[2017-02-28 15:32] LABS: THYROID STIMULATING HORMONE 1.13 uIu/ml (0.300-4.500)
[2017-03-05 08:00] LABS: GLIADIN DEAMIDATED IgA AB 5 UNITS (<20); GLIADIN DEAMIDATED IgG AB 6 UNITS (<20); RETICULIN IgA AB Negative (Negative)
== END | disposition home or self-care (01) ==
LOC: C.LAB 13:09
PROVIDERS: ATTEND Internal Medicine
DX: E03.9 Hypothyroidism, unspecified (principal); R53.83 Other fatigue; M62.81 Muscle weakness (generalized); R20.2 Paresthesia of skin; R41.82 Altered mental status, unspecified; E53.8 Deficiency of other specified B group vitamins

== ENCOUNTER → 2017-03-03 | Outpatient (CLI) | payer OTHER | END | disposition home or self-care (01) | LOC: C.LAB 07:29 | PROVIDERS: ATTEND Internal Medicine | DX: R41.82 Altered mental status, unspecified (principal) ==

== ENCOUNTER → 2017-03-27 | Outpatient (CLI) | payer OTHER ==
[~2017-03-27] MED LIST changes: -ESCI10TA17 PO; -MULT-506 PO
== END | disposition home or self-care (01) ==
LOC: C.LAB 14:00
PROVIDERS: ATTEND Physician Assistant
DX: E03.9 Hypothyroidism, unspecified (principal)

== ENCOUNTER → 2017-04-15 | Outpatient (CLI) | payer OTHER | END | disposition home or self-care (01) | LOC: C.LAB 09:57 | PROVIDERS: ATTEND Physician Assistant | DX: E53.8 Deficiency of other specified B group vitamins (principal) ==

== ENCOUNTER 2017-04-26 21:29 | Emergency (ER) | payer OTHER ==
[~2017-04-26] VITALS: Ht 154.9 cm; Wt 54.7 kg
[~2017-04-26 21:29] MED LIST changes: -BIOT1TAB2 PO; -CYAN10005 PO; -LORA-741 PO; -METO25TA3 PO
[2017-04-26 21:37] VITALS: TEMP 36.8; Ht 154.9 cm; Wt 54.7 kg
[2017-04-26] MEDS ORDERED: BIOT1TAB2 PO (22:08)
[2017-04-26] MEDS ORDERED: CYAN10005 PO (22:08)
[2017-04-26 23:28] LABS: BASO % 0.6 %; BASO ABS # 0.05 K/uL (0-0.2); COMPLETE YES; EOS % 0.7 %; HEMATOCRIT 44.3 % (37-47); IG% 0.1 %; LYMPH % 39.3 %; LYMPH ABS # 3.23 K/uL (1.2-3.4); MEAN CORPUSCULAR HEMOGLOBIN 30.8 pg (25-34); MEAN CORPUSCULAR HGB CONC 35.4 g/dl (32-36); MEAN PLATELET VOLUME 9.7 fL (7.4-10.4); MONO % 6.7 %; NEUT % 52.6 %; PLATELET COUNT 318 K/uL (130-400); RED BLOOD COUNT 5.09 M/uL (4.2-5.4); WHITE BLOOD COUNT 8.21 K/uL (4.8-10.8)
[2017-04-26 23:31] LABS: URINE APPEARANCE CLEAR (CLEAR); URINE BILIRUBIN NEG (NEG); URINE COLOR YELLOW; URINE NITRITE NEG (NEG); URINE PH 6.5 (4.5-7.5); URINE SPECIFIC GRAVITY 1.018 (1.000-1.030); UROBILINOGEN NEG (NEG); ZZUR CULT IF INDIC CLEAN CATCH NO
[2017-04-26 23:37] LABS: POINT OF CARE TROPONIN I < 0.030 ng/ml (0-0.045)
[2017-04-26 23:39] LABS: INR 0.9 (0.9-1.1)
--- NOTE | 2017-04-26 23:42 | DIAGNOSTIC IMAGING REPORT ---
TWO VIEW CHEST CLINICAL HISTORY: Palpitations. FINDINGS: PA and lateral chest radiographs are compared to study dated 02/01/2017. The cardiomediastinal silhouette is unremarkable. The lungs and pleural spaces are clear. There is no pneumothorax. The bony thorax appears intact. IMPRESSION: No active disease in the chest. Electronically signed by: Catracho Warren M.D. 04/26/2017 11:41 PM Dictated Date/Time: 04/26/2017 11:41 PM
[2017-04-26 23:47] LABS: BUN/CREATININE RATIO 13.5 (10-20); CALCIUM 9.8 mg/dl (8.5-10.1); CREATININE 0.93 mg/dl (0.60-1.20); MAGNESIUM 2.3 mg/dl (1.8-2.4); POTASSIUM 3.3 mmol/L (3.5-5.1)
[2017-04-26 23:55] LABS: ALB/GLOB RATIO 0.8 (0.9-2); THYROID STIMULATING HORMONE 6.37 uIu/ml (0.300-4.500)
[2017-04-26 23:55] LABS: BENZODIAZEPINE, URINE NEG (NEG); COCAINE,URINE NEG (NEG); MANUAL MICROSCOPIC REQUIRED? NO; PHENCYCLIDINE, URINE NEG (NEG); REVIEW REQ? NO
[2017-04-27] MEDS ORDERED: OPTIRAY 320 IV PRN
[2017-04-27 00:27] LABS: LYME DISEASE AB IGG NEG (NEG); LYME DISEASE AB IGM NEG (NEG)
--- NOTE | 2017-04-27 00:31 | DIAGNOSTIC IMAGING REPORT ---
CT ANGIOGRAM OF THE CHEST CLINICAL HISTORY: Dyspnea. Palpitations. COMPARISON STUDY: Chest x-ray dated 04/26/2017. TECHNIQUE: Following the IV administration of 75 cc of Optiray 320, CT angiogram of the chest was performed from the upper abdomen to the thoracic inlet utilizing the pulmonary embolus protocol. Images are reviewed in the axial, sagittal, and coronal planes. 3-D MIPS images are created and assessed. IV contrast was administered without complication. A dose lowering technique was utilized adhering to the principles of ALARA. CT DOSE: 187.92 mGy.cm FINDINGS: Thyroid: Imaged portions of the thyroid gland are normal in size and attenuation. Thoracic aorta: The thoracic aorta is normal in caliber and demonstrates standard 3-vessel arch anatomy. No dissection is seen. Pulmonary vasculature: The pulmonary trunk is normal in caliber. There are no filling defects identified in main, lobar, or proximal segmental pulmonary branches to suggest pulmonary embolus. Evaluation of the peripheral branches is degraded by motion artifact. Heart: The heart is normal in size and configuration, and without pericardial effusion. Lungs and pleural spaces: A calcified granuloma is noted in the right upper lobe. The lungs and pleural spaces are otherwise clear. The trachea and central airways are patent. Mediastinum: There is no mediastinal lymphadenopathy. Ale: Clear. Axillae: There is no axillary lymphadenopathy. Upper abdomen: Partially visualized upper abdominal viscera is within normal limits. Skeletal structures: No lytic or blastic bony lesions are seen. IMPRESSION: 1. There is no evidence of pulmonary embolus in the main, lobar, or proximal segmental pulmonary arteries. 2. The lungs are clear. Electronically signed by: Catracho Warren M.D. 04/27/2017 12:30 AM Dictated Date/Time: 04/27/2017 12:25 AM
[2017-04-27 01:01] VITALS: BP 125/80
[2017-04-27 01:04] VITALS: PULSE 105; O2SAT 98
--- NOTE | 2017-04-27 02:25 | EMERGENCY ROOM VISIT NOTE ---
History First contact with patient: 22:24 Chief Complaint: CARDIAC ASSESSMENT Stated Complaint: HEART SKIPPING BEATS Nursing Triage Summary: pt reports feeling of "missed beats." it hasnt done it for "10 minutes now." History of Present Illness The patient is a 31 year old female who presents to the Emergency Room with complaints of palpitations and vague chest pain over the past one day. The patient has had intermittent chest discomfort symptoms for the past few months. She has been seen in the emergency department previously with this complaint, which ultimately led to her having normal echocardiogram and stress echo by cardiology 5 months ago. The patient was found to have hypothyroidism and was on a low dose of Synthroid for a few months. The patient stated that the Synthroid dosing made her feel worse, and at the instruction of endocrinology she discontinued the Synthroid about one month ago. She has not had recent fever or chills. No difficulty breathing. She did have travel to the [place] earlier in the summer about 4 or 5 weeks ago, but does not have a history of DVT or PE. She describes the chest discomfort as a hollow sensation in the chest. There is no radiation of the discomfort. She has been eating, drinking , and using the bathroom is normal. She denies chance of . She rates her discomfort a 4/10. Review of Systems More than 10 systems were reviewed and otherwise negative with the exception of history of present illness. Past Medical/Surgical History Medical Problems: (1) Migraine Unspecified W/O Intract Mgrn W/O Status Migrainosus Surgical Problems: (1) History of delivery (2) History of tympanostomy Family History Cancer Diabetes mellitus Hypertension Kidney disease Kidney stones Seizures Social History Smoking Status: Never Smoker Alcohol Use: none Marital Status: Housing Status: lives with family Occupation Status: employed Current/Historical Medications Scheduled Biotin (Biotin), 1 TAB PO DAILY Control Pills ( Control Pills), 1 TAB PO DAILY Cyanocobalamin (Vitamin B-12), 1,000 MCG PO DAILY Scheduled PRN Sumatriptan Succinate (Imitrex), 50 MG PO PRN PRN for Migraine Physical Exam Vital Signs Date Time Temp Pulse Resp B/P (MAP) Pulse Ox O2 Delivery O2 Flow Rate FiO2 04/27/17 01:04 105 22 98 04/27/17 01:01 125/80 04/27/17 00:49 119 20 98 8/20/17 00:34 121 19 100 04/27/17 00:31 146/91 04/27/17 00:24 138/96 04/27/17 00:04 84 17 99 04/27/17 00:01 121/74 04/26/17 23:49 83 16 98 04/26/17 23:46 90 98 04/26/17 23:44 143/76 04/26/17 23:25 87 99 Room Air 04/26/17 23:19 85 15 99 04/26/17 23:14 127/81 04/26/17 23:10 96 13 04/26/17 22:05 84 04/26/17 21:44 98 Room Air 04/26/17 21:37 36.8 103 18 148/76 100 Room Air Pain Rating (0-10): 0 Physical Exam VITALS: Vitals are noted on the nurse's note and reviewed by myself. Vital signs stable. GENERAL: Well-developed, well-nourished, white female, who is in no acute distress and resting comfortably. Patient is cooperative with the examination. HEAD: Normocephalic atraumatic. EARS: External ear normal. External auditory canals clear, tympanic membranes pearly arambula without erythema or effusion bilaterally. EYES: Pupils equal round and reactive to light and accommodation. Conjunctivae without injection, sclerae without icterus. Extraocular movements intact. NOSE: Patent, turbinates without inflammation or discharge. MOUTH: Mucous membranes moist. Tonsils are not enlarged. Pharynx without erythema, blood, or exudate. Uvula midline. Airway patent. NECK: Supple without nuchal rigidity. No lymphadenopathy. No thyromegaly. Cervical spine is nontender. HEART: Regular rate and rhythm without murmurs gallops or rubs. LUNGS: Clear to auscultation bilaterally without wheezes, rales or rhonchi. No retractions or accessory muscle use. ABDOMEN: Positive normal bowel sounds x 4. Soft, nontender, without masses or organomegaly. No guarding or rebound tenderness. MUSCULOSKELETAL: No muscle atrophy, erythema, or edema noted. Full range of motion without joint tenderness in all extremities. No tenderness to palpation. Normal gait. Strength 5/5 throughout. NEURO: Patient was alert and oriented to person place and time. CN II through XII grossly intact. Deep tendon reflexes 2+ throughout. No focal neurological deficits SKIN: The skin was without rashes, erythema, edema, or bruising. Capillary reflex less than 2 seconds. Medical Decision & Procedures ER Provider Diagnostic Interpretation: TWO VIEW CHEST CLINICAL HISTORY: Palpitations. FINDINGS: PA and lateral chest radiographs are compared to study dated 02/01/2017. The cardiomediastinal silhouette is unremarkable. The lungs and pleural spaces are clear. There is no pneumothorax. The bony thorax appears intact. IMPRESSION: No active disease in the chest. CT ANGIOGRAM OF THE CHEST CLINICAL HISTORY: Dyspnea. Palpitations. COMPARISON STUDY: Chest x-ray dated 04/26/2017. TECHNIQUE: Following the IV administration of 75 cc of Optiray 320, CT angiogram of the chest was performed from the upper abdomen to the thoracic inlet utilizing the pulmonary embolus protocol. Images are reviewed in the axial, sagittal, and coronal planes. 3-D MIPS images are created and assessed. IV contrast was administered without complication. A dose lowering technique was utilized adhering to the principles of ALARA. CT DOSE: 187.92 mGy.cm FINDINGS: Thyroid: Imaged portions of the thyroid gland are normal in size and attenuation. Thoracic aorta: The thoracic aorta is normal in caliber and demonstrates standard 3-vessel arch anatomy. No dissection is seen. Pulmonary vasculature: The pulmonary trunk is normal in caliber. There are no filling defects identified in main, lobar, or proximal segmental pulmonary branches to suggest pulmonary embolus. Evaluation of the peripheral branches is degraded by motion artifact. Heart: The heart is normal in size and configuration, and without pericardial effusion. Lungs and pleural spaces: A calcified granuloma is noted in the right upper lobe. The lungs and pleural spaces are otherwise clear. The trachea and central airways are patent. Mediastinum: There is no mediastinal lymphadenopathy. Ale: Clear. Axillae: There is no axillary lymphadenopathy. Upper abdomen: Partially visualized upper abdominal viscera is within normal limits. Skeletal structures: No lytic or blastic bony lesions are seen. IMPRESSION: 1. There is no evidence of pulmonary embolus in the main, lobar, or proximal segmental pulmonary arteries. 2. The lungs are clear. Laboratory Results 04/26/17 23:15 Red Blood Count 5.09, Mean Corpuscular Volume 87.0, Mean Corpuscular Hemoglobin 30.8, Mean Corpuscular Hemoglobin Concent 35.4, Mean Platelet Volume 9.7, Neutrophils (%) (Auto) 52.6, Lymphocytes (%) (Auto) 39.3, Monocytes (%) (Auto) 6.7, Eosinophils (%) (Auto) 0.7, Basophils (%) (Auto) 0.6, Neutrophils # (Auto) 4.31, Lymphocytes # (Auto) 3.23, Monocytes # (Auto) 0.55, Eosinophils # (Auto) 0.06, Basophils # (Auto) 0.05 04/26/17 23:15 Test 04/26/17 22:50 04/26/17 23:15 04/26/17 23:18 Urine Color YELLOW Urine Appearance CLEAR (CLEAR) Urine pH 6.5 (4.5-7.5) Urine Specific [place] 1.018 (1.000-1.030) Urine Protein NEG (NEG) Urine Glucose (UA) NEG (NEG) Urine Ketones NEG (NEG) Urine Occult Blood NEG (NEG) Urine Nitrite NEG (NEG) Urine Bilirubin NEG (NEG) Urine Urobilinogen NEG (NEG) Urine Leukocyte Esterase NEG (NEG) Urine Test NEG (NEG) Urine Opiates Screen NEG (NEG) Urine Methadone, Qualitative NEG (NEG) Urine Barbiturates NEG (NEG) Urine Phencyclidine (PCP) Level NEG (NEG) Ur Amphetamine/Methamphetamine NEG (NEG) MDMA (Ecstasy) Screen NEG (NEG) Urine Benzodiazepines Screen NEG (NEG) Urine Cocaine Metabolite NEG (NEG) Urine Marijuana (THC) NEG (NEG) White Blood Count 8.21 K/uL (4.8-10.8) Red Blood Count 5.09 M/uL (4.2-5.4) Hemoglobin 15.7 g/dL (12.0-16.0) Hematocrit 44.3 % (37-47) Mean Corpuscular Volume 87.0 fL (80-100) Mean Corpuscular Hemoglobin 30.8 pg (25-34) Mean Corpuscular Hemoglobin Concent 35.4 g/dl (32-36) Platelet Count 318 K/uL (130-400) Mean Platelet Volume 9.7 fL (7.4-10.4) Neutrophils (%) (Auto) 52.6 % Lymphocytes (%) (Auto) 39.3 % Monocytes (%) (Auto) 6.7 % Eosinophils (%) (Auto) 0.7 % Basophils (%) (Auto) 0.6 % Neutrophils # (Auto) 4.31 K/uL (1.4-6.5) Lymphocytes # (Auto) 3.23 K/uL (1.2-3.4) Monocytes # (Auto) 0.55 K/uL (0.11-0.59) Eosinophils # (Auto) 0.06 K/uL (0-0.5) Basophils # (Auto) 0.05 K/uL (0-0.2) RDW Standard Deviation 38.9 fL (36.4-46.3) RDW Coefficient of Variation 12.2 % (11.5-14.5) Immature Granulocyte % (Auto) 0.1 % Immature Granulocyte # (Auto) 0.01 K/uL (0.00-0.02) Prothrombin Time 10.0 SECONDS (9.0-12.0) Prothromb Time International Ratio 0.9 (0.9-1.1) Activated Partial Thromboplast Time 27.1 SECONDS (21.0-31.0) Partial Thromboplastin Ratio 1.0 Anion Gap 8.0 mmol/L (3-11) Est Creatinine Clear Calc Drug Dose 65.5 ml/min Estimated GFR () 94.3 Estimated GFR (Non- 81.3 BUN/Creatinine Ratio 13.5 (10-20) Calcium Level 9.8 mg/dl (8.5-10.1) Magnesium Level 2.3 mg/dl (1.8-2.4) Total Bilirubin 0.3 mg/dl (0.2-1) Aspartate Amino Transf (AST/SGOT) 14 U/L (15-37) Alanine Aminotransferase (ALT/SGPT) 20 U/L (12-78) Alkaline Phosphatase 68 U/L (45-117) Total Protein 9.0 gm/dl (6.4-8.2) Albumin 4.1 gm/dl (3.4-5.0) Globulin 4.9 gm/dl (2.5-4.0) Albumin/Globulin Ratio 0.8 (0.9-2) Lipase 199 U/L (73-393) Thyroid Stimulating Hormone (TSH) 6.370 uIu/ml (0.300-4.500) Free Thyroxine 1.05 ng/dl (0.80-1.60) Lyme Disease IgG Antibody NEG (NEG) Lyme Disease IgM Antibody NEG (NEG) Bedside D-Dimer > 450 ng/mlFEU (0-450) Bedside Troponin I < 0.030 ng/ml (0-0.045) ECG Change: Normal sinus rhythm @[address] and T wave abnormality Abnormal ECG When compared with ECG of 31-JAN-2017 21:25, No significant change was found ED Course Physical exam and history were performed. Nursing notes, EMR, and Medication List were personally reviewed. Patient appears to have palpitations and a strange hollow sensation in her chest. The patient has a family history of cardiac disease and has had a normal stress test herself for the past 6 months. She does follow with cardiology. Additionally there is a history of thyroid disorder. IV access was established and labs were obtained. EKG is as above and is without acute ST elevation. Chest x-ray was performed. The patient was placed on cardiac rehab nurse. The patient's blood work is as above and was reviewed. She does not have a significant elevated white blood cell count, gross anemia, bandemia, or significant electrolyte imbalance. Transaminases are nondiagnostic. Troponin 1 is negative. D-dimer was elevated and a CT scan was performed and without acute findings. Chest x-ray was also without acute findings. TSH is elevated at greater than 6, however I am unsure if this is distinctly the cause of her symptoms. She did remain in normal sinus rhythm with intermittent episodes of sinus tachycardia while on the cardiac rehab nurse. There is no ectopy or significant dysrhythmic episodes. Urine was without evidence of infection. Drug of abuse was negative. Lyme was negative. Overall the patient remained in stable condition throughout her emergency department stay. I discussed options of care with the patient who feels comfortable with discharge home. She does not appear to be experiencing an acutely life-threatening event or process. I suspect this is an exacerbation of palpitation symptoms that she has had over the past several months. The patient is to follow with her primary care physician and compliance program manager this week for further care and management. She was certainly invited back to ER with any new, worsening, or concerning symptoms. The chart was completed utilizing [employer] Voice Recognition Software. Grammatical errors, random word insertions, pronoun errors, and incomplete sentences are an occasional consequence of this system due to software limitations, ambient noise, and hardware issues. Any formal questions or concerns about the content, text, or information contained within the body of this dictation should be directly addressed to the provider for clarification. . Medical Decision Differential diagnosis includes, but is not limited to: Myocardial infarction, dysrhythmia, pericarditis, pneumothorax, aortic aneurysm/dissection, DVT/PE, anxiety, GERD, PUD, electrolyte imbalance, thyroid disorder, pneumonia, bronchitis, pancreatitis, and others Medication Reconcilliation Current Medication List: was personally reviewed by me Blood Pressure Screening Blood pressure disposition: Elevated BP felt to be situational Impression Primary Impression: Intermittent palpitations Departure Information Dispostion Home / Self-Care Condition GOOD Forms IMPORTANT VISIT INFORMATION Patient Instructions [facility] Additional Instructions You were seen and evaluated today on an emergency basis only. This is not a substitute for, or an effort to provide, complete comprehensive medical care. It is not possible to recognize and treat all injuries or illnesses in a single emergency department visit. For this reason it is recommended that you followup with your compliance program manager by telephone on Friday to arrange appropriate follow-up visit. Drink plenty of fluids and remain well hydrated. You are welcome to return to the emergency department anytime with new, worsening, or concerning symptoms.
== END 2017-04-27 01:08 | disposition home or self-care (01) ==
LOC: C.EDB 21:30 → C.EDA 04-27 01:08
DX: R00.2 Palpitations (principal); Z80.9 Family history of malignant neoplasm, unspecified; Z83.3 Family history of diabetes mellitus; Z82.49 Family history of ischemic heart disease and other diseases of the circulatory system; Z84.1 Family history of disorders of kidney and ureter; Z82.0 Family history of epilepsy and other diseases of the nervous system

== ENCOUNTER 2017-05-04 18:47 | Emergency (ER) | payer OTHER ==
[~2017-05-04] VITALS: Ht 154.9 cm; Wt 53.9 kg
[~2017-05-04 18:47] MED LIST changes: -ATEN-173 PO; +BIOT1TAB2 PO; +CYAN10005 PO; -LEVO25TA PO
[2017-05-04 18:53] VITALS: TEMP 36.4; Ht 154.9 cm; Wt 53.9 kg
[2017-05-04] MEDS ORDERED: ATIVAN 1MG HOMEPACK PO ONE (19:30)
--- NOTE | 2017-05-04 19:31 | EMERGENCY ROOM VISIT NOTE ---
History First contact with patient: 18:55 Chief Complaint: CALF PAIN Stated Complaint: R CALF PAIN History of Present Illness The patient is a 31 year old female who presents to the Emergency Room with complaints of right calf pain that started 2 days ago. The patient denies any known injury. She reports it as a dull ache that is constant. Intermittently she gets sharp pains up the back of her calf. She has tried Tylenol and ibuprofen with mild relief of the pain. The patient denies any chest pain or pressure. No shortness of breath. She does feel occasional heart palpitations. She has had heart palpitations for many months now. She had a full cardiac workup including a stress test and echocardiogram. She follows with Dr. Cason. Review of Systems 10 system review performed and negative unless noted in HPI or below Past Medical/Surgical History Medical Problems: (1) Migraine Unspecified W/O Intract Mgrn W/O Status Migrainosus Surgical Problems: (1) History of delivery (2) History of tympanostomy Anxiety Heart palpitations Family History Cancer Diabetes mellitus Hypertension Kidney disease Kidney stones Seizures Social History Smoking Status: Never Smoker Alcohol Use: none Marital Status: Housing Status: lives with family Occupation Status: employed Current/Historical Medications Scheduled Biotin (Biotin), 1 TAB PO DAILY Control Pills ( Control Pills), 1 TAB PO DAILY Cyanocobalamin (Vitamin B-12), 1,000 MCG PO DAILY Levothyroxine Sodium (Synthroid), 25 MCG PO DAILY Metoprolol Succ (Toprol Xl) (Toprol-Xl), 12.5 MG PO DAILY Scheduled PRN Sumatriptan Succinate (Imitrex), 50 MG PO PRN PRN for Migraine Physical Exam Vital Signs Date Time Temp Pulse Resp B/P (MAP) Pulse Ox O2 Delivery O2 Flow Rate FiO2 05/04/17 19:52 96 18 138/75 96 Room Air 05/04/17 18:53 36.4 103 18 153/90 100 Room Air Physical Exam VITALS: Vitals are noted on the nurse's note and reviewed by myself. Vital signs stable. GENERAL: 31-year-old female, mildly anxious in appearance, nondiaphoretic, well- developed well-nourished. SKIN: The skin was without rashes, erythema, edema, or bruising. HEAD: Normocephalic atraumatic. HEART: Regular rate and rhythm without murmurs gallops or rubs. LUNGS: Clear to auscultation bilaterally without wheezes, rales or rhonchi. No accessory muscle use. MUSCULOSKELETAL: No muscle atrophy, erythema, or edema noted. Full range of motion in all extremities. No tenderness to palpation. Normal gait. Strength 5/5 throughout. NEURO: Patient was alert and oriented to person place and time. Normal sensation to touch. No focal neurological deficits. Medical Decision & Procedures ER Provider Diagnostic Interpretation: BILATERAL LOWER EXTREMITY VENOUS DOPPLER HISTORY: Acute right-sided calf pain. COMPARISON STUDY: None. FINDINGS: There is normal compressibility, flow, and augmentation within the right lower extremity deep venous system. IMPRESSION: No DVT within the right lower extremity. Electronically signed by: Jose Koo M.D. 05/04/2017 8:42 PM Dictated Date/Time: 05/04/2017 8:41 PM The status of this report is Signed. Draft = Not yet reviewed or approved by Radiologist. Signed = Reviewed and approved by Radiologist ED Course The patient was seen and examined An ultrasound was performed and reviewed The findings were discussed with the patient She was given a home pack of Ativan The patient was discharged in good condition Medical Decision Differential diagnosis: Muscular strain, DVT, cellulitis, anxiety This patient is a pleasant 31-year-old female that presents emergency department with 2 days of Pain. Her exam was unremarkable. I do think that the patient's anxiety is playing a role in her symptoms. The patient had the of her aunt from a heart attack in her 50s a few months ago. Her other and also just had a heart attack in her 40s. She is concerned that there is something cardiac going on. She also recently changed jobs. The patient was given a home pack of Ativan. I urged her to follow-up with her primary care physician for further treatment of her anxiety. She was welcomed to return to the emergency department with worsening symptoms Blood Pressure Screening Patient's blood pressure: Normal blood pressure Impression Primary Impression: Right calf pain Departure Information Dispostion Home / Self-Care Condition GOOD Prescriptions Lorazepam (ATIVAN) 0.5 Mg Tab 0.5 MG PO Q8H for Anxiety, #10 TAB Prov: Marley Hsu PA-C 05/04/17 Referrals Willard Donnelly M.D. (PCP) Patient Instructions My [facility] Additional Instructions You were evaluated in the emergency department today for right calf pain. An ultrasound was negative for any blood clots. Please continue to take Tylenol and ibuprofen for pain Ibuprofen 400 mg and/or Tylenol 500 mg every 8 hours. You may also alternate these medications for more effective pain relief: Ibuprofen --4 HRS--> Tylenol --4 HRS--> ibuprofen --4 HRS--> Tylenol .... It is likely that some of your symptoms are related to anxiety. You have been given a short prescription of Ativan. You may have 1 tab every 8 hours as needed for anxiety. Please do not drink alcohol or drug take his medication. It may make you drowsy Please follow-up with your primary care physician within one week for a recheck. Please return to the emergency department with any new medical concerns or worsening symptoms
[2017-05-04] MEDS ORDERED: LEVO25TA PO (19:34)
[2017-05-04] MEDS ORDERED: METO25TA3 PO (19:35)
--- NOTE | 2017-05-04 20:44 | DIAGNOSTIC IMAGING REPORT ---
BILATERAL LOWER EXTREMITY VENOUS DOPPLER HISTORY: Acute right-sided calf pain. COMPARISON STUDY: None. FINDINGS: There is normal compressibility, flow, and augmentation within the right lower extremity deep venous system. IMPRESSION: No DVT within the right lower extremity. Electronically signed by: Jose Koo M.D. 05/04/2017 8:42 PM Dictated Date/Time: 05/04/2017 8:41 PM
[2017-05-04] MEDS ORDERED: LORA-741 PO (20:52)
[2017-05-04 21:18] VITALS: BP 142/85; PULSE 93; O2SAT 100
== END 2017-05-04 21:18 | disposition home or self-care (01) ==
LOC: C.EDB 18:47
DX: M79.661 Pain in right lower leg (principal); R00.2 Palpitations; F41.9 Anxiety disorder, unspecified; G43.909 Migraine, unspecified, not intractable, without status migrainosus; Z79.3 Long term (current) use of hormonal contraceptives; Z83.3 Family history of diabetes mellitus; Z82.49 Family history of ischemic heart disease and other diseases of the circulatory system; Z82.0 Family history of epilepsy and other diseases of the nervous system; Z84.1 Family history of disorders of kidney and ureter

== ENCOUNTER 2017-07-03 21:05 | Emergency (ER) | payer OTHER ==
[~2017-07-03] VITALS: Ht 154.9 cm; Wt 55.2 kg
[~2017-07-03 21:05] MED LIST changes: +LEVO25TA PO; +METO25TA3 PO
[2017-07-03 21:13] VITALS: TEMP 36.8; Ht 154.9 cm; Wt 55.2 kg
[2017-07-03 21:44] VITALS: O2SAT 98
[2017-07-03] MEDS ORDERED: ESCI10TA17 PO (21:49)
[2017-07-03] MEDS ORDERED: MULT-506 PO (21:49)
[2017-07-03 22:13] LABS: BASO % 0.8 %; BASO ABS # 0.07 K/uL (0-0.2); COMPLETE YES; HEMATOCRIT 39.7 % (37-47); IG% 0.1 %; LYMPH % 36.9 %; LYMPH ABS # 3.04 K/uL (1.2-3.4); MEAN CELL VOLUME 87.8 fL (80-100); MEAN CORPUSCULAR HEMOGLOBIN 29.9 pg (25-34); MEAN PLATELET VOLUME 9.4 fL (7.4-10.4); MONO % 8.9 %; NEUT % 52.3 %; PLATELET COUNT 300 K/uL (130-400); RED BLOOD COUNT 4.52 M/uL (4.2-5.4); WHITE BLOOD COUNT 8.24 K/uL (4.8-10.8)
--- NOTE | 2017-07-03 22:20 | DIAGNOSTIC IMAGING REPORT ---
CHEST ONE VIEW PORTABLE CLINICAL HISTORY: Atypical chest pain COMPARISON STUDY: 04/26/2017 FINDINGS: The cardiac and mediastinal contours are normal. There is no evidence of focal pulmonary consolidation. There is no evidence of failure. No pleural effusions are visualized.[ IMPRESSION: No active disease in the chest. Electronically signed by: Kendall Sanz M.D. 07/03/2017 10:18 PM Dictated Date/Time: 07/03/2017 10:18 PM
[2017-07-03 22:24] LABS: POINT OF CARE TROPONIN I < 0.030 ng/ml (0-0.045)
[2017-07-03 22:32] LABS: PREG INTERNAL NEGATIVE QC NEG CLEAR BACKGROUND; PREG INTERNAL POSITIVE QC POS CONTROL LINE
[2017-07-03 22:33] LABS: ALT/SGPT 16 U/L (12-78); BLOOD UREA NITROGEN 16 mg/dl (7-18); CALCIUM 8.7 mg/dl (8.5-10.1); CARBON DIOXIDE 24 mmol/L (21-32); CHLORIDE 108 mmol/L (98-107); CREATININE 0.88 mg/dl (0.60-1.20); GLUCOSE 114 mg/dl (70-99); MAGNESIUM 2.2 mg/dl (1.8-2.4); POTASSIUM 3.7 mmol/L (3.5-5.1); SODIUM 139 mmol/L (136-145)
[2017-07-03 22:44] LABS: ALKALINE PHOSPHATASE 51 U/L (45-117); AST/SGOT 11 U/L (15-37)
[2017-07-03] MEDS ORDERED: OPTIRAY 320 IV PRN (22:45)
--- NOTE | 2017-07-03 22:53 | DIAGNOSTIC IMAGING REPORT ---
CT ANGIOGRAM OF THE CHEST CLINICAL HISTORY: Atypical chest pain. Elevated d-dimer. COMPARISON STUDY: 04/27/2017, chest x-ray dated 07/03/2017 TECHNIQUE: Following the IV administration of 85 mL of Optiray-320, CT angiogram of the thorax was performed from the thoracic inlet to the lung bases utilizing the pulmonary embolus protocol. Images are reviewed in the axial, sagittal, and coronal planes. IV contrast was administered without complication. MIP imaging was performed. A dose lowering technique was utilized adhering to the principles of ALARA. CT DOSE: 191.87 mGy.cm FINDINGS: No pathologically enlarged axillary mediastinal or hilar lymph nodes were visualized. There was no evidence of thoracic aortic dilatation. There were no pulmonary artery filling defects to indicate acute pulmonary embolism. No pleural effusions are visualized. There was no evidence of focal pulmonary consolidation. IMPRESSION: 1. No evidence of acute pulmonary embolism 2. No evidence of focal pulmonary consolidation Electronically signed by: Kendall Sanz M.D. 07/03/2017 10:52 PM Dictated Date/Time: 07/03/2017 10:49 PM
[2017-07-03 23:01] LABS: LYME DISEASE AB IGG NEG (NEG); LYME DISEASE AB IGM NEG (NEG)
[2017-07-03 23:10] VITALS: BP 133/83; PULSE 90; O2SAT 97
--- NOTE | 2017-07-03 23:31 | EMERGENCY ROOM VISIT NOTE ---
History First contact with patient: 21:23 Chief Complaint: CARDIAC ASSESSMENT Stated Complaint: DIZZY,NAUSEA,CHEST PAIN,L ARM & JAW PAIN Nursing Triage Summary: See triage note. History of Present Illness The patient is a 31 year old female who presents to the Emergency Room with complaints of intermittent chest pain with jaw pain and shoulder pain for the past 6 months. Patient had a normal stress test and echo November 2016 of [address] by Dr. Travis. She has another stress echo scheduled for next month as her symptoms have been progressing. 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 Patient also has Chitra's. She does not like the way synthroid makes her feel so she stopped taking it and reviewed this with her psychologist educational. Patient occasionally gets heart palpitations and was on metoprolol but did not like the side effects and stopped this also. Patient had an extensive workup by the PCP and was recently start on Lexapro 2 months ago. Patient states some of her anxiety has lessened. She does not feel like her symptoms are from anxiety though. Patient is on control. She does not smoke. No recent travel. Patient states her maternal aunt had heart disease in her 50s. Patient states that has intermittent chest pain that lasts for about 15 minutes described as aching, ranging in severity 5 out of 10 that occurs about 5 times per day for the past 6 months. Patient states for the past 2 weeks she has now gotten jaw pain and left shoulder pain. Nothing exertional. Patient denies abdominal pain, nausea , vomiting, diarrhea, leg pain or swelling, back pain, recent illness. She is tolerating by mouth fluids and food. Patient denies high blood pressure, cluster, diabetes, tobacco use, drug use. Review of Systems See HPI for pertinent positives & negatives. A total of 10 systems reviewed and were otherwise negative. Past Medical/Surgical History Medical Problems: (1) Migraine Unspecified W/O Intract Mgrn W/O Status Migrainosus Surgical Problems: (1) History of delivery (2) History of tympanostomy Chitra's, heart palpitations Family History Cancer Diabetes mellitus Hypertension Kidney disease Kidney stones Seizures Social History Smoking Status: Never Smoker Alcohol Use: none Marital Status: Housing Status: lives with family Occupation Status: employed Current/Historical Medications Scheduled Control Pills ( Control Pills), 1 TAB PO DAILY Escitalopram (Lexapro), 10 MG PO QAM Multivitamin (Multivitamin), 1 TAB PO DAILY Scheduled PRN Sumatriptan Succinate (Imitrex), 50 MG PO PRN PRN for Migraine Physical Exam Vital Signs Date Time Temp Pulse Resp B/P (MAP) Pulse Ox O2 Delivery O2 Flow Rate FiO2 07/03/17 23:10 90 16 133/83 97 Room Air 07/03/17 21:44 98 Room Air 07/03/17 21:27 100 07/03/17 21:13 36.8 103 18 153/92 100 Room Air Physical Exam VITALS: Vitals are noted on the nurse's note and reviewed by myself. Vital signs stable. GENERAL:pleasant female, in no acute distress, nondiaphoretic, well-developed well-nourished. SKIN: The skin was without rashes, erythema, edema, or bruising. There is no tenting of the skin. Capillary reflex less than 2 seconds. HEAD: Normocephalic atraumatic. EARS: External auditory canals clear, tympanic membranes pearly arambula without erythema or effusion bilaterally. EYES: Pupils equal round and reactive to light and accommodation. Conjunctivae without injection, sclerae without icterus. Extraocular movements intact. NOSE: Patent, turbinates without inflammation or discharge. MOUTH: Mucous membranes moist. Pharynx without erythema or exudate. Uvula midline. Airway patent. Tongue does not deviate. NECK: Supple without nuchal rigidity. No lymphadenopathy. No thyromegaly. Cervical spine is nontender. No JVD. HEART: Regular rate and rhythm without murmurs gallops or rubs. Chest nontender to palpation LUNGS: Clear to auscultation bilaterally without wheezes, rales or rhonchi. No dullness to percussion. No retractions or accessory muscle use. ABDOMEN: Positive bowel sounds x 4. Normal tympanic percussion. Soft, nontender, without masses or organomegaly. Davis sign negative. No guarding or rebound tenderness. MUSCULOSKELETAL: No muscle atrophy, erythema, or edema noted. NEURO: Patient was alert and oriented to person place and time. Normal sensation to light and sharp touch. No focal neurological deficits. Medical Decision & Procedures Laboratory Results 07/03/17 21:57 Red Blood Count 4.52, Mean Corpuscular Volume 87.8, Mean Corpuscular Hemoglobin 29.9, Mean Corpuscular Hemoglobin Concent 34.0, Mean Platelet Volume 9.4, Neutrophils (%) (Auto) 52.3, Lymphocytes (%) (Auto) 36.9, Monocytes (%) (Auto) 8.9, Eosinophils (%) (Auto) 1.0, Basophils (%) (Auto) 0.8, Neutrophils # (Auto) 4.31, Lymphocytes # (Auto) 3.04, Monocytes # (Auto) 0.73, Eosinophils # (Auto) 0.08, Basophils # (Auto) 0.07 07/03/17 21:57 Test 07/03/17 21:57 07/03/17 22:08 White Blood Count 8.24 K/uL (4.8-10.8) Red Blood Count 4.52 M/uL (4.2-5.4) Hemoglobin 13.5 g/dL (12.0-16.0) Hematocrit 39.7 % (37-47) Mean Corpuscular Volume 87.8 fL (80-100) Mean Corpuscular Hemoglobin 29.9 pg (25-34) Mean Corpuscular Hemoglobin Concent 34.0 g/dl (32-36) Platelet Count 300 K/uL (130-400) Mean Platelet Volume 9.4 fL (7.4-10.4) Neutrophils (%) (Auto) 52.3 % Lymphocytes (%) (Auto) 36.9 % Monocytes (%) (Auto) 8.9 % Eosinophils (%) (Auto) 1.0 % Basophils (%) (Auto) 0.8 % Neutrophils # (Auto) 4.31 K/uL (1.4-6.5) Lymphocytes # (Auto) 3.04 K/uL (1.2-3.4) Monocytes # (Auto) 0.73 K/uL (0.11-0.59) Eosinophils # (Auto) 0.08 K/uL (0-0.5) Basophils # (Auto) 0.07 K/uL (0-0.2) RDW Standard Deviation 40.7 fL (36.4-46.3) RDW Coefficient of Variation 12.6 % (11.5-14.5) Immature Granulocyte % (Auto) 0.1 % Immature Granulocyte # (Auto) 0.01 K/uL (0.00-0.02) Anion Gap 7.0 mmol/L (3-11) Est Creatinine Clear Calc Drug Dose 69.2 ml/min Estimated GFR () 100.8 Estimated GFR (Non- 86.9 BUN/Creatinine Ratio 18.0 (10-20) Calcium Level 8.7 mg/dl (8.5-10.1) Magnesium Level 2.2 mg/dl (1.8-2.4) Total Bilirubin 0.2 mg/dl (0.2-1) Direct Bilirubin < 0.1 mg/dl (0-0.2) Aspartate Amino Transf (AST/SGOT) 11 U/L (15-37) Alanine Aminotransferase (ALT/SGPT) 16 U/L (12-78) Alkaline Phosphatase 51 U/L (45-117) Total Protein 7.1 gm/dl (6.4-8.2) Albumin 3.3 gm/dl (3.4-5.0) Lipase 142 U/L (73-393) Thyroid Stimulating Hormone (TSH) 17.100 uIu/ml (0.300-4.500) Human Chorionic Gonadotropin, Qual NEG (NEG) Lyme Disease IgG Antibody NEG (NEG) Lyme Disease IgM Antibody NEG (NEG) Bedside D-Dimer > 450 ng/mlFEU (0-450) Bedside Troponin I < 0.030 ng/ml (0-0.045) ED Course Prior records/ancillary studies reviewed. Triage Nursing notes reviewed. Additional history obtained from family The patient's history was concerning for chest pain. Differential diagnosis: Etiologies such as cardiac ischemia, aortic dissection, pulmonary embolism, pneumonia, pneumothorax, musculoskeletal, infections, pericarditis, myocarditis , esophageal rupture, gastrointestinal, as well as others were entertained. Physical examination: As above. ER treatment provided: pt was observed On reassessment the patient felt better. Diagnostic interpretation by me: The electrocardiogram was normal sinus, normal intervals, T wave inversion in lead 3, impression normal sinus rhythm interpreted by myself. Old EKG was unchanged. The labs revealed other d-dimer and patient was sent for CTA and this is negative. Negative troponin. Slightly elevated TSH. Patient was advised to see her psychologist educational. Imaging studies: Chest x-ray as above [~ rep ct add3]] CT ANGIOGRAM OF THE CHEST CLINICAL HISTORY: Atypical chest pain. Elevated d-dimer. COMPARISON STUDY: 04/27/2017, chest x-ray dated 07/03/2017 TECHNIQUE: Following the IV administration of 85 mL of [id number]-[id number], CT angiogram of the thorax was performed from the thoracic inlet to the lung bases utilizing the pulmonary embolus protocol. Images are reviewed in the axial, sagittal, and coronal planes. IV contrast was administered without complication. MIP imaging was performed. A dose lowering technique was utilized adhering to the principles of ALARA. CT DOSE: 191.87 mGy.cm FINDINGS: No pathologically enlarged axillary mediastinal or hilar lymph nodes were visualized. There was no evidence of thoracic aortic dilatation. There were no pulmonary artery filling defects to indicate acute pulmonary embolism. No pleural effusions are visualized. There was no evidence of focal pulmonary consolidation. IMPRESSION: 1. No evidence of acute pulmonary embolism 2. No evidence of focal pulmonary consolidation Electronically signed by: Kendall Sanz M.D. Exam and history seem consistent with noncardiac chest pain. Patient had unremarkable workup besides a slightly elevated TSH. She had a stress test earlier this year that was unremarkable. She has a stress test and echo scheduled within the next few weeks. Her symptoms are nonexertional. Her EKG is unchanged. Her troponin is negative. She is advised to follow-up as scheduled with her specialist or here in the ER sooner for chest pain, difficulty breathing, worsening signs or symptoms or as needed. By the evaluation outlined above emergent etiologies such as cardiac ischemia, aortic dissection, pulmonary embolism, pneumonia, pneumothorax, infections, pericarditis, myocarditis, gastrointestinal, as well as others were deemed relatively unlikely. The pt informed about the findings as listed above. All questions were answered and pleased with the treatment. Return instructions were outlined and the patient was discharged in stable condition. 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 Case reviewed with my attending Medical Decision as above Medication Reconcilliation Current Medication List: was personally reviewed by me Blood Pressure Screening Patient's blood pressure: Normal blood pressure Impression Primary Impression: Non-cardiac chest pain Additional Impression: Elevated TSH Departure Information Dispostion Home / Self-Care Condition GOOD Forms IMPORTANT VISIT INFORMATION Patient Instructions Chest Pain - [facility] Additional Instructions Follow up with your psychologist educational for your slightly elevated TSH today. Follow-up as scheduled with your railroad wheels and axles inspector for further outpatient testing for your ongoing chest pain symptoms. Ibuprofen(Motrin, Advil) may be used for fever or pain. Use 400mg every six hours as needed. Take with food. Avoid using more than 1600mg in a 24 hour period. Do not use 1600mg per day for more than three consecutive days without physician direction. Prolonged inappropriate use can lead to stomach upset or ulcers. (AND/OR) Acetaminophen(Tylenol) may be used for fever or pain. Use 500mg every six hours as needed. Avoid using more than 2000mg in a 24 hour period. Rest and drink plenty of fluids as tolerated. Continue current medications. Avoid strenuous activities and anything that worsens your pain. Resume normal activities once your symptoms resolve. Return to the ER immediately for worsening or persistent chest pain, abdominal pain, vomiting, fevers, chest pains, difficulty breathing, worsening of your condition, or as needed. Follow up with your primary physician in 2-3 days for a recheck of your current condition. If your symptoms persist, recommend follow-up with GI for further evaluation and workup for your ongoing symptoms. Problem Qualifiers
== END 2017-07-03 23:20 | disposition home or self-care (01) ==
LOC: C.EDB 21:06 → C.EDC 23:20
DX: R07.9 Chest pain, unspecified (principal); R94.6 Abnormal results of thyroid function studies; Z79.899 Other long term (current) drug therapy; Z80.9 Family history of malignant neoplasm, unspecified; Z83.3 Family history of diabetes mellitus; Z82.49 Family history of ischemic heart disease and other diseases of the circulatory system; Z84.1 Family history of disorders of kidney and ureter; Z82.0 Family history of epilepsy and other diseases of the nervous system

== ENCOUNTER → 2017-09-09 | Outpatient (CLI) | payer OTHER ==
[~2017-09-09] MED LIST changes: -BIOT1TAB2 PO; -CYAN10005 PO; +ESCI10TA17 PO; -LEVO25TA PO; -METO25TA3 PO; +MULT-506 PO
--- NOTE | 2017-09-09 13:26 | DIAGNOSTIC IMAGING REPORT ---
VENOUS DOPP LOWER EXT UNILAT CLINICAL HISTORY: 31 years-old Female presenting with M79.669 Calf painRight calf pain E X0D E [id number]. TECHNIQUE: Real-time grayscale and color and spectral Doppler ultrasound imaging of the veins of the right lower extremity was performed. Compression and augmentation were also utilized. COMPARISON: . FINDINGS: Right: Common femoral vein: Patent. Greater saphenous vein: Patent. Deep femoral vein: Patent. Femoral vein: Patent. Popliteal vein: Patent. Calf veins: Patent. Other: None. IMPRESSION: No evidence of deep venous thrombosis. Electronically signed by: Willard Garcia M.D. 09/09/2017 1:24 PM Dictated Date/Time: 09/09/2017 1:23 PM
== END | disposition home or self-care (01) ==
LOC: C.ULTR 12:34
PROVIDERS: ATTEND Nurse Practitioner Adult Health
DX: M79.661 Pain in right lower leg (principal)

== ENCOUNTER → 2017-09-25 | Outpatient (CLI) | payer OTHER | END | disposition home or self-care (01) | LOC: C.LAB 12:07 | PROVIDERS: ATTEND Internal Medicine | DX: E53.8 Deficiency of other specified B group vitamins (principal); E06.3 Autoimmune thyroiditis ==

== ENCOUNTER → 2017-11-28 | Outpatient (CLI) | payer OTHER | END | disposition home or self-care (01) | LOC: C.LAB 10:07 | PROVIDERS: ATTEND Internal Medicine | DX: E06.3 Autoimmune thyroiditis (principal) ==

== ENCOUNTER → 2018-01-23 | Outpatient (CLI) | payer OTHER | END | disposition home or self-care (01) | LOC: C.LAB 13:02 | PROVIDERS: ATTEND Internal Medicine | DX: E06.3 Autoimmune thyroiditis (principal) ==

== ENCOUNTER → 2018-04-29 | Outpatient (CLI) | payer OTHER | END | disposition home or self-care (01) | LOC: C.LAB 10:28 | PROVIDERS: ATTEND Internal Medicine | DX: E06.3 Autoimmune thyroiditis (principal) ==